=== PATIENT | female | born 1960 | race Caucasian/White ===

== ENCOUNTER 2016-07-11 17:52 | Emergency (ER) | payer SELFPAY ==
[2016-07-11 18:33] VITALS: O2SAT 98
--- NOTE | 2016-07-11 19:40 | ED.PDOC ---
History of Present Illness - General Chief Complaint: Problem Stated Complaint: hematuria Time Seen by Provider: 07/11/16 19:37 Source: patient Exam Limitations: no limitations - History of Present Illness Initial Comments: Ms. Eileen Ontiveros 55 y/o female with history of Dm2 ,HTN stated that for the last 2 weeks she had blood in her urine with frequency and dysuria .no fever,or chills but also with low back pain. Timing/Duration: getting worse, other - 14 days Quality: cramping Onset Location: suprapubic Radiation: none Activites at Onset: none Prior abdominal problems: none Sexual intercourse history: single partner Improving Factors: nothing Worsening Factors: nothing Associated Symptoms: other - back pain Allergies/Adverse Reactions: Allergies NO KNOWN ALLERGY Allergy (Verified 03/10/16 21:16) Home Medications: Ambulatory Orders Ciprofloxacin [Cipro] 500 mg PO BID #14 tab 03/10/16 Fluconazole [Diflucan Tab] 100 mg PO DAILY #5 tab 03/10/16 Ondansetron [Zofran Odt] 4 mg PO Q4H PRN #10 tab 03/10/16 Nitrofurantoin Monohydrate Mac [Macrobid] 100 mg PO BID #14 cap 07/11/16 Phenazopyridine HCl [Pyridium] 200 mg PO BID #20 tab 07/11/16 Review of Systems - Review of Systems Constitutional: States: no symptoms reported EENTM: States: no symptoms reported Respiratory: States: no symptoms reported Cardiology: States: no symptoms reported Gastrointestinal/Abdominal: States: other - irregular bowel movement Genitourinary: States: see HPI Musculoskeletal: States: no symptoms reported Skin: States: no symptoms reported Neurological: States: no symptoms reported Endocrine: States: no symptoms reported Hematologic/Lymphatic: States: no symptoms reported Past Medical History (General) - Patient Medical History Hx Stroke: No Hx Dementia: No Hx Asthma: Yes Hx of COPD: Yes Hx Cardiac Disorders: Yes Hx Congestive Heart Failure: No Hx Pacemaker: No Hx Hypertension: Yes Hx Thyroid Disease: No Hx Diabetes: Yes Hx Gastroesophageal Reflux: Yes Hx Renal Disease: No Hx Cancer: No Hx of HIV: No Hx Hepatitis C: No Hx MRSA: No MRSA Source:: Wound Surgical History: appendectomy, cholecystectomy, other - hysterectomy - Vaccination History Hx Tetanus, Diphtheria Vaccination: Yes Hx Influenza Vaccination: Yes - 12/2015 Hx Pneumococcal Vaccination: Yes - 07/2015 - Social History Hx Tobacco Use: Yes Hx Chewing Tobacco Use: No Hx Alcohol Use: Yes - occ Hx Substance Use: No Hx Substance Use Treatment: No Hx Depression: Yes Hx Physical Abuse: No Hx Emotional Abuse: No Hx Suspected Abuse: No - Activities of Daily Living Patient Lives Alone: No - Grooming Ability: Independent Eating (Feeding) Ability: Independent Toileting Ability: Independent - Female History Patient is a Female of Child Bearing Age (10 -59 yrs old): No - hysterectomy Patient : No Family Medical History - Family History Mother Living Status: Hx Family Hypertension: Yes - parents Hx Cardiac Disease: Yes Hx Family Diabetes: Yes - parents Hx Family Cancer: Yes - dad-prostate;sister-breast Daughter Family History: Unknown Living Status: Hx Family Diabetes: Yes Physical Exam - Physical Exam General Appearance: Alert, Comfortable, No apparent distress Eyes, Ears, Nose, Throat Exam: PERRL/EOMI, normal ENT inspection, TMs normal, pharynx normal Neck: non-tender, full range of motion, supple, normal inspection Cardiovascular/Respiratory: regular rate, rhythm, no M/R/G, normal peripheral pulses Gastrointestinal/Abdominal: normal bowel sounds, non tender, soft, no organomegaly, no pulsatile mass Back Exam: normal inspection, no CVA tenderness, no vertebral tenderness Extremity: normal range of motion, non-tender, normal inspection Neurologic: no motor/sensory deficits, alert, normal mood/affect, oriented x 3 Skin Exam: normal color, warm/dry, cyanosis Progress - Results/Orders Results/Orders: Laboratory Results Urine Color Yellow (Yellow) 07/11/16 16:00 Urine Appearance Cloudy (Clear) 07/11/16 16:00 Urine pH 6.0 (4.5-7.8) 07/11/16 16:00 Ur Specific [place] 1.010 (1.005-1.030) 07/11/16 16:00 Urine Protein 30 mg/dL 07/11/16 16:00 Urine Glucose (UA) 500 mg/dL (Negative) H 07/11/16 16:00 Urine Ketones Negative mg/dL (NEGATIVE) 07/11/16 16:00 Urine Blood Large (Negative) H 07/11/16 16:00 Urine Nitrite Negative 07/11/16 16:00 Urine Bilirubin Negative (NEGATIVE) 07/11/16 16:00 Urine Urobilinogen 0.2 mg/dL (0.2-1.0) 07/11/16 16:00 Ur Leukocyte Esterase Small (Negative) H 07/11/16 16:00 Urine RBC 5-10 /hpf H 07/11/16 16:00 Urine WBC Tntc /hpf H 07/11/16 16:00 Ur Epithelial Cells 3-5 /hpf 07/11/16 16:00 Urine Bacteria 1+ 07/11/16 16:00 Vital Signs - 8 hr 07/11/16 17:53 Temperature 99.2 F Pulse Rate [ 94 H Left Radial] Respiratory 20 Rate Blood Pressure 156/94 [Left Arm] O2 Sat by Pulse 98 Oximetry Departure - Departure Clinical Impression: UTI (urinary tract infection) Qualifiers: Urinary tract infection type: acute cystitis Hematuria presence: with hematuria Qualifier Code: (N30.01) Acute cystitis with hematuria Time of Disposition: 19:48 Disposition: Discharge to Home or Self Care Condition: Good Departure Forms: ED Discharge - Pt. Copy, Patient Portal Self Enrollment Instructions: DI for Urinary Tract Infection (UTI), Bladder Infection ( Alternative Therapy) Referrals: Venecia Stratton NP [Primary Care Provider] - 1-2 Weeks Prescriptions: Nitrofurantoin Monohydrate Mac [Macrobid] 100 mg PO BID #14 cap Phenazopyridine HCl [Pyridium] 200 mg PO BID #20 tab Home Medications: Ambulatory Orders Ciprofloxacin [Cipro] 500 mg PO BID #14 tab 03/10/16 Fluconazole [Diflucan Tab] 100 mg PO DAILY #5 tab 03/10/16 Ondansetron [Zofran Odt] 4 mg PO Q4H PRN #10 tab 03/10/16 Nitrofurantoin Monohydrate Mac [Macrobid] 100 mg PO BID #14 cap 07/11/16 Phenazopyridine HCl [Pyridium] 200 mg PO BID #20 tab 07/11/16 Additional Instructions: FOLLOW UP WITH PRIMARY MD patient to call for appointment
[2016-07-11] MEDS ORDERED: PHENAZOPYRIDINE HCL 200 MG TAB PO ONE (19:49)
[2016-07-11] MEDS ORDERED: NITROFURANTOIN MONO (ER DISP) 100 MG CAP PO ONE (19:57)
[2016-07-11] MEDS ORDERED: NITROFURANTOIN MONOHYDRATE MAC 100 MG CAP ONE (19:58)
[2016-07-11] MEDS ORDERED: NITROFURANTOIN MONOHYDRATE MAC 100 MG CAP PO ONE (20:02)
[2016-07-11 20:29] VITALS: BP 142/77; TEMP 97
== END 2016-07-11 20:25 | disposition home or self-care (01) ==
LOC: ER 17:52
DX: N30.01 Acute cystitis with hematuria (principal); J44.9 Chronic obstructive pulmonary disease, unspecified; I10 Essential (primary) hypertension; E11.9 Type 2 diabetes mellitus without complications; K21.9 Gastro-esophageal reflux disease without esophagitis; Z87.891 Personal history of nicotine dependence; Z79.899 Other long term (current) drug therapy

== ENCOUNTER 2017-12-06 20:17 | Emergency (ER) | payer SELFPAY ==
--- NOTE | 2017-12-06 20:41 | ED.PDOC ---
History of Present Illness - General Chief Complaint: [employer] Problem Stated Complaint: vaginal bleeding/cough Time Seen by Provider: 12/06/17 20:20 Source: patient Exam Limitations: no limitations - History of Present Illness Initial Comments: Eileen Ontiveros 56 y/o female stated that she had slight productive cough for the 4-5 days ;also with urinary frequency and blood in urine.DENIES VAGINAL BLEEDING stating coming from urinary bladder not vagina.Had blood in urine in the past recommended Urology referral but did not go. Timing/Duration: week, intermittent Quality: moderate, burning Onset Location: suprapubic Radiation: none Activites at Onset: none Prior abdominal problems: similar symptoms Sexual intercourse history: not active Improving Factors: nothing Worsening Factors: nothing Associated Symptoms: urinary frequency Allergies/Adverse Reactions: Allergies NO KNOWN ALLERGY Allergy (Verified 11/08/17 11:25) Home Medications: Ambulatory Orders Ciprofloxacin [Cipro] 500 mg PO BID #14 tab 03/10/16 Fluconazole [Diflucan Tab] 100 mg PO DAILY #5 tab 03/10/16 Ondansetron [Zofran Odt] 4 mg PO Q4H PRN #10 tab 03/10/16 Nitrofurantoin Monohydrate Mac [Macrobid] 100 mg PO BID #14 cap 07/11/16 Phenazopyridine HCl [Pyridium] 200 mg PO BID #20 tab 07/11/16 Acetamin W/Cod #3 Tab [Tylenol w/CODEINE #3] 1 ea PO Q6HR #3 tab 11/08/17 Cephalexin Monohydrate [Keflex] 500 mg PO Q8HRS 10 Days #40 cap 11/08/17 Benzonatate Perles [Tessalon Perles] 200 mg PO BID PRN #30 cap 12/06/17 Loratadine & Pseudoephedrine [Claritin-D 24 Hour 10-240 mg] 1 tab PO DAILY PRN # 10 tab 12/06/17 Sulfa/Trimeth 800/160 (Ds) Tab [Bactrim DS] 1 tablet PO BID #20 tab 12/06/17 Review of Systems - Review of Systems Constitutional: States: no symptoms reported EENTM: States: see HPI, nose congestion Respiratory: States: see HPI, cough Cardiology: States: no symptoms reported Gastrointestinal/Abdominal: States: no symptoms reported Genitourinary: States: see HPI, hematuria Musculoskeletal: States: no symptoms reported Skin: States: no symptoms reported Neurological: States: no symptoms reported Past Medical History (General) - Patient Medical History Hx Stroke: No Hx Dementia: No Hx Asthma: Yes Hx of COPD: Yes Hx Cardiac Disorders: Yes Hx Congestive Heart Failure: No Hx Pacemaker: No Hx Hypertension: Yes Hx Thyroid Disease: No Hx Diabetes: Yes Hx Gastroesophageal Reflux: Yes Hx Renal Disease: No Hx Cancer: No Hx of HIV: No Hx Hepatitis C: No Hx MRSA: No MRSA Source:: Wound Surgical History: other - hysterectomy - Vaccination History Hx Tetanus, Diphtheria Vaccination: No Hx Influenza Vaccination: No Hx Pneumococcal Vaccination: Yes - 07/2015 - Social History Hx Tobacco Use: Yes Hx Chewing Tobacco Use: No Hx Alcohol Use: Yes - rare Hx Substance Use: No Hx Substance Use Treatment: No Hx Depression: Yes Hx Physical Abuse: No Hx Emotional Abuse: No Hx Suspected Abuse: No - Female History Patient : No Family Medical History - Family History Mother Living Status: Hx Family Hypertension: Yes - parents Hx Cardiac Disease: Yes Hx Family Diabetes: Yes - parents Hx Family Cancer: Yes - dad-prostate;sister-breast Daughter Family History: Unknown Living Status: Hx Family Diabetes: Yes Physical Exam - Physical Exam General Appearance: Alert, Comfortable, No apparent distress Eyes, Ears, Nose, Throat Exam: other - nasal drainage Neck: supple, normal inspection Cardiovascular/Respiratory: regular rate, rhythm, no M/R/G, normal peripheral pulses, normal breath sounds Gastrointestinal/Abdominal: soft, no organomegaly Back Exam: no CVA tenderness, no vertebral tenderness Neurologic: alert, oriented x 3 Progress - Progress Progress: 12/06/17 23:42 Vital Signs - 8 hr 12/06/17 12/06/17 12/06/17 20:44 20:51 22:35 Temperature 98.9 F Pulse Rate 73 Pulse Rate [ 100 H Left] Respiratory 20 20 20 Rate Blood Pressure 157/86 [Left Arm] O2 Sat by Pulse 97 95 Oximetry - Results/Orders Results/Orders: 12/06/17 23:12 URINE CULTURE W/COLONY COUNT Stat 12/07/17 09:00 [facility] Daily Laboratory Results - last 24 hr 12/06/17 12/06/17 21:37 23:12 WBC 7.6 RBC 4.63 Hgb 14.0 Hct 41.6 MCV 89.9 MCH 30.3 MCHC 33.7 RDW 13.2 Plt Count 298 MPV 6.6 L Absolute Neuts (auto) 4.90 Absolute Lymphs (auto) 1.90 Absolute Monos (auto) 0.60 Absolute Eos (auto) 0.20 Absolute Basos (auto) 0.00 Neutrophils % 64.3 Lymphocytes % 24.6 Monocytes % 7.6 Eosinophils % 3.0 Basophils % 0.5 Urine Color Yellow Urine Appearance Sl cloudy Urine pH 6.5 Ur Specific [place] 1.020 Urine Protein 100 H Urine Glucose (UA) 500 H Urine Ketones Negative Urine Blood Large H Urine Nitrite Negative Urine Bilirubin Negative Urine Urobilinogen 0.2 Ur Leukocyte Esterase Trace H Urine RBC 40-50 H Urine WBC 20-30 H Ur Epithelial Cells 3-5 Urine Bacteria 1+ - EKG/XRAY/CT XRAY: chest - no acute infiltrates Departure - Departure Clinical Impression: Hematuria due to acute cystitis, Cough, Nasal congestion Time of Disposition: 23:43 Disposition: Discharge to Home or Self Care Condition: Fair Departure Forms: ED Discharge - Pt. Copy, Patient Portal Self Enrollment Instructions: Quitting Smoking for Older Adults, Smoking: Not Just Harmful to Your Lungs and Heart, Quitting Smoking, Drugs to Help You Stop Using Tobacco Referrals: Venecia Stratton NP [Primary Care Provider] - 1-2 Weeks Prescriptions: Benzonatate Perles [Tessalon Perles] 200 mg PO BID PRN #30 cap PRN Reason: Cough Loratadine & Pseudoephedrine [Claritin-D 24 Hour 10-240 mg] 1 tab PO DAILY PRN # 10 tab PRN Reason: Congestion Sulfa/Trimeth 800/160 (Ds) Tab [Bactrim DS] 1 tablet PO BID #20 tab Home Medications: Ambulatory Orders Ciprofloxacin [Cipro] 500 mg PO BID #14 tab 03/10/16 Fluconazole [Diflucan Tab] 100 mg PO DAILY #5 tab 03/10/16 Ondansetron [Zofran Odt] 4 mg PO Q4H PRN #10 tab 03/10/16 Nitrofurantoin Monohydrate Mac [Macrobid] 100 mg PO BID #14 cap 07/11/16 Phenazopyridine HCl [Pyridium] 200 mg PO BID #20 tab 07/11/16 Acetamin W/Cod #3 Tab [Tylenol w/CODEINE #3] 1 ea PO Q6HR #3 tab 11/08/17 Cephalexin Monohydrate [Keflex] 500 mg PO Q8HRS 10 Days #40 cap 11/08/17 Benzonatate Perles [Tessalon Perles] 200 mg PO BID PRN #30 cap 12/06/17 Loratadine & Pseudoephedrine [Claritin-D 24 Hour 10-240 mg] 1 tab PO DAILY PRN # 10 tab 12/06/17 Sulfa/Trimeth 800/160 (Ds) Tab [Bactrim DS] 1 tablet PO BID #20 tab 12/06/17 Additional Instructions: Follow up with your primary Md 08 December 2017 as needed;Return to ER as needed;May use nasal saline spray 4 sprays each nostril as needed for nasal congestion
--- NOTE | 2017-12-06 21:39 | RAD ---
PROCEDURE: XR CHEST 1 VIEW HISTORY: cough COMPARISON: 11/16/2017 TECHNIQUE: Single projection of the chest was done. FINDINGS: The lung bowman are well inflated . There are no discrete airspace infiltrates, pneumothoraces or pleural effusions. The pulmonary vascularity is normal. The cardiomediastinal silhouette is unremarkable for patient's age and sex. IMPRESSION: There is no acute pleural-parenchymal process seen in the imaged lung bowman. Location of Interpretation: [facility]eler[facility]iology Electronically signed by: Shade Hicks MD 12/06/2017 9:38 PM CDT Workstation: [id number]
[2017-12-06] MEDS ORDERED: IPRATROPIUM/ALBUTEROL 3 ML VIAL NEB ONE (22:18)
[2017-12-06] MEDS ORDERED: PSEUDOEPHEDRINE HCL 30 MG TAB PO ONE (23:44)
[2017-12-06] MEDS ORDERED: BENZONATATE PERLES 100 MG CAP PO ONE (23:44)
[2017-12-06] MEDS ORDERED: SULFA/TRIMETH TAB 800/160 (ER) 1 EA TAB PO ONE (23:44)
[2017-12-07] MEDS ORDERED: IPRATROPIUM/ALBUTEROL 3 ML VIAL NEB ONE (00:03)
[2017-12-07 00:19] VITALS: BP 153/87; TEMP 98.7; O2SAT 98
== END 2017-12-07 00:19 | disposition home or self-care (01) ==
LOC: ER 20:17
DX: N30.01 Acute cystitis with hematuria (principal); R05 Cough; R09.81 Nasal congestion; F32.9 Major depressive disorder, single episode, unspecified; J44.9 Chronic obstructive pulmonary disease, unspecified; I10 Essential (primary) hypertension; E11.9 Type 2 diabetes mellitus without complications; Z87.891 Personal history of nicotine dependence; Z79.899 Other long term (current) drug therapy
CPT/HCPCS: 36415; 71045; 81001; 85025; 87086; 94640; J7620

== ENCOUNTER 2017-12-15 19:36 | Emergency (ER) | payer SELFPAY ==
[2017-12-15 19:53] VITALS: TEMP 98.1; O2SAT 99
[2017-12-15] MEDS ORDERED: INSULIN LISPRO 100 UNITS/ML PEN SUBCU ONE (21:13)
--- NOTE | 2017-12-15 21:55 | CT ---
EXAM DESCRIPTION: Abdomen/Pelvis w/Contrast CLINICAL HISTORY:56 years Female, recurrent hematuria Comparison: None TECHNIQUE: Contiguous axial images of the abdomen and pelvis were obtained followed by reconstruction images. This exam was performed according to our departmental dose-optimization program, which includes automated exposure control, adjustment of the mA and/or kV according to patient size and/or use of iterative reconstruction technique. FINDINGS: Lung bases: Lung bases are clear. Heart: Visualized heart is within normal limits in size. Liver:Unremarkable. No focal liver lesion. Gallbladder:Cholecystectomy. Spleen:Unremarkable Pancreas: Pancreas is unremarkable. Adrenal glands:Within normal limits. Kidneys/ureters:Within normal limits Bladder:Mild bladder wall thickening. Pelvic organs: Hysterectomy. No pelvic mass lesion. Vascular structures: Scattered atherosclerotic calcifications. Peritoneum: Trace amount of pelvic fluid. Lymph nodes: No abnormal lymph nodes. Stomach/small bowel/colon: Stomach is unremarkable. Small bowel is unremarkable. Scattered colonic diverticula. No evicence of diverticulitis. Appendix: Appendix seen, within normal limits. Bones: No acute osseous abnormality. Soft tissues: Unremarkable.. IMPRESSION: Mild bladder wall thickening. Correlate for infectious cystitis. Nonspecific trace pelvic fluid. Electronically signed by: Andres Anderson MD 12/15/2017 9:54 PM CDT
[2017-12-15] MEDS ORDERED: FLUCONAZOLE 100 MG TAB PO ONE (22:07)
[2017-12-15] MEDS ORDERED: CIPROFLOXACIN 500 MG TAB PO ONE (22:07)
--- NOTE | 2017-12-15 22:10 | ED.PDOC ---
History of Present Illness - General Chief Complaint: Problem Stated Complaint: blood in urine, low back and low abd pain Time Seen by Provider: 12/15/17 20:17 Source: patient Exam Limitations: no limitations - History of Present Illness Initial Comments: The patient is a 56-year-old female presenting to emergency room secondary to intermittent hematuria. She reports this is been going on for the better part of the last month. She has had episodes of hematuria in the past and she has had urinary tract infections in the past. No fevers. She does report intermittent mild flank pain. She does have a history of smoking.she reports no vaginal bleeding just bleeding with urination. Timing/Duration: unsure Severity: moderate Improving Factors: nothing Worsening Factors: nothing Associated Symptoms: denies symptoms Allergies/Adverse Reactions: Allergies NO KNOWN ALLERGY Allergy (Verified 11/08/17 11:25) Home Medications: Ambulatory Orders Ciprofloxacin [Cipro] 500 mg PO BID #14 tab 03/10/16 Fluconazole [Diflucan Tab] 100 mg PO DAILY #5 tab 03/10/16 Ondansetron [Zofran Odt] 4 mg PO Q4H PRN #10 tab 03/10/16 Nitrofurantoin Monohydrate Mac [Macrobid] 100 mg PO BID #14 cap 07/11/16 Phenazopyridine HCl [Pyridium] 200 mg PO BID #20 tab 07/11/16 Acetamin W/Cod #3 Tab [Tylenol w/CODEINE #3] 1 ea PO Q6HR #3 tab 11/08/17 Cephalexin Monohydrate [Keflex] 500 mg PO Q8HRS 10 Days #40 cap 11/08/17 Benzonatate Perles [Tessalon Perles] 200 mg PO BID PRN #30 cap 12/06/17 Loratadine & Pseudoephedrine [Claritin-D 24 Hour 10-240 mg] 1 tab PO DAILY PRN # 10 tab 12/06/17 Sulfa/Trimeth 800/160 (Ds) Tab [Bactrim DS] 1 tablet PO BID #20 tab 12/06/17 Ciprofloxacin [Cipro] 500 mg PO BID #20 tab 12/15/17 Review of Systems - Review of Systems Constitutional: States: no symptoms reported EENTM: States: no symptoms reported Respiratory: States: no symptoms reported Cardiology: States: no symptoms reported Gastrointestinal/Abdominal: States: no symptoms reported Genitourinary: States: see HPI Musculoskeletal: States: no symptoms reported Skin: States: no symptoms reported Neurological: States: no symptoms reported Endocrine: States: no symptoms reported All other Systems: No Change from Baseline Past Medical History (General) - Patient Medical History Hx Stroke: No Hx Dementia: No Hx Asthma: Yes Hx of COPD: Yes Hx Cardiac Disorders: Yes Hx Congestive Heart Failure: No Hx Pacemaker: No Hx Hypertension: Yes Hx Thyroid Disease: No Hx Diabetes: Yes Hx Gastroesophageal Reflux: Yes Hx Renal Disease: No Hx Cancer: No Hx of HIV: No Hx Hepatitis C: No Hx MRSA: No MRSA Source:: Wound Surgical History: appendectomy, cholecystectomy, Hysterectomy, other - Vaccination History Hx Tetanus, Diphtheria Vaccination: No Hx Influenza Vaccination: No Hx Pneumococcal Vaccination: Yes - 07/2015 - Social History Hx Tobacco Use: Yes Hx Chewing Tobacco Use: No Hx Alcohol Use: Yes - rare Hx Substance Use: No Hx Substance Use Treatment: No Hx Depression: Yes Hx Physical Abuse: No Hx Emotional Abuse: No Hx Suspected Abuse: No - Female History Patient : No Family Medical History - Family History Mother Living Status: Hx Family Hypertension: Yes - parents Hx Cardiac Disease: Yes Hx Family Diabetes: Yes - parents Hx Family Cancer: Yes - dad-prostate;sister-breast Father Living Status: Cause of : CT Daughter Family History: Unknown Living Status: Hx Family Diabetes: Yes Physical Exam - Physical Exam General Appearance: Alert, Comfortable, No apparent distress Eye Exam: bilateral normal Ears, Nose, Throat: normal ENT inspection, normal pharynx Neck: full range of motion, supple Respiratory: lungs clear, normal breath sounds, no respiratory distress, no accessory muscle use Cardiovascular/Chest: normal peripheral pulses, regular rate, rhythm, no edema Peripheral Pulses: radial,right: 2+, radial,left: 2+ Gastrointestinal/Abdominal: non tender, soft Rectal Exam: deferred Back Exam: no CVA tenderness, no vertebral tenderness Extremity: non-tender, no pedal edema, no calf tenderness, other - 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 Neurologic: quality inspector II-XII nml as tested, alert, normal mood/affect, oriented x 3 Skin Exam: normal color Comments: Vital Signs - 24 hr 12/15/17 19:51 Temperature 98.1 F Pulse Rate [ 98 H Left Radial] Respiratory 20 Rate Blood Pressure 212/112 [Left Arm] O2 Sat by Pulse 99 Oximetry Progress - Progress Progress: 12/15/17 22:11 the patient is a 56-year-old female presenting with hematuria and a CT scan is consistent with cystitis. The patient will be placed on ciprofloxacin for 10 days as this has been a recurrent issue. She is also receiving one dose of Diflucan here. She does need follow-up with her primary care doctor to have a repeat urinalysis performed. A urine culture will be performed here today. She has had several episodes of hematuria in the past. CT scan here was reassuring otherwise. It may be worthwhile for her to see a urologist for a cystoscopy if the problem continues. She needs to keep herself well hydrated. She needs to achieve better blood sugar control. ER warnings were given. - Results/Orders Results/Orders: Laboratory Tests 12/15/17 12/15/17 12/15/17 19:53 20:36 20:36 WBC 7.7 RBC 4.64 Hgb 14.1 Hct 42.2 MCV 90.9 MCH 30.3 MCHC 33.4 RDW 13.6 Plt Count 347 MPV 6.5 L Absolute Neuts (auto) 5.00 Absolute Lymphs (auto) 2.00 Absolute Monos (auto) 0.50 Absolute Eos (auto) 0.20 Absolute Basos (auto) 0.00 Neutrophils % 65.3 Lymphocytes % 25.9 Monocytes % 6.1 Eosinophils % 2.2 Basophils % 0.5 PT 9.2 INR 0.92 PTT (SP) 21.8 Sodium Potassium Chloride Carbon Dioxide Anion Gap BUN Creatinine BUN/Creatinine Ratio Random Glucose Serum Osmolality Calcium Total Bilirubin AST ALT Alkaline Phosphatase Serum Total Protein Albumin Globulin Albumin/Globulin Ratio Urine Color Yellow Urine Appearance Clear Urine pH 6.0 Ur Specific [place] 1.020 Urine Protein 100 H Urine Glucose (UA) >=1000 H Urine Ketones Negative Urine Blood Large H Urine Nitrite Negative Urine Bilirubin Negative Urine Urobilinogen 0.2 Ur Leukocyte Esterase Trace H Urine RBC 30-40 H Urine WBC 5-10 H Ur Epithelial Cells 3-5 Urine Bacteria Rare 12/15/17 20:36 WBC RBC Hgb Hct MCV MCH MCHC RDW Plt Count MPV Absolute Neuts (auto) Absolute Lymphs (auto) Absolute Monos (auto) Absolute Eos (auto) Absolute Basos (auto) Neutrophils % Lymphocytes % Monocytes % Eosinophils % Basophils % PT INR PTT (SP) Sodium 135 Potassium 3.6 Chloride 100 L Carbon Dioxide 27 Anion Gap 11.6 L BUN 8 Creatinine 0.57 L BUN/Creatinine Ratio 14.0 Random Glucose 300 H Serum Osmolality 279.6 Calcium 9.3 Total Bilirubin 0.6 AST 16 ALT 17 Alkaline Phosphatase 127 H Serum Total Protein 7.3 Albumin 3.7 Globulin 3.6 H Albumin/Globulin Ratio 1.0 L Urine Color Urine Appearance Urine pH Ur Specific [place] Urine Protein Urine Glucose (UA) Urine Ketones Urine Blood Urine Nitrite Urine Bilirubin Urine Urobilinogen Ur Leukocyte Esterase Urine RBC Urine WBC Ur Epithelial Cells Urine Bacteria CT scan of abdomen and pelvis fails to show any definitive abnormality with the exception that she does have some bladder wall thickening that could be consistent with cystitis. Departure - Departure Clinical Impression: Cystitis Disposition: Discharge to Home or Self Care Condition: Fair Departure Forms: ED Discharge - Pt. Copy, Patient Portal Self Enrollment Instructions: DI for Urinary Tract Infection (UTI) Diet: diabetic diet Activity: increase activity as tolerated Referrals: Venecia Stratton NP [Primary Care Provider] - 1-2 Weeks Prescriptions: Ciprofloxacin [Cipro] 500 mg PO BID #20 tab Home Medications: Ambulatory Orders Ciprofloxacin [Cipro] 500 mg PO BID #14 tab 03/10/16 Fluconazole [Diflucan Tab] 100 mg PO DAILY #5 tab 03/10/16 Ondansetron [Zofran Odt] 4 mg PO Q4H PRN #10 tab 03/10/16 Nitrofurantoin Monohydrate Mac [Macrobid] 100 mg PO BID #14 cap 07/11/16 Phenazopyridine HCl [Pyridium] 200 mg PO BID #20 tab 07/11/16 Acetamin W/Cod #3 Tab [Tylenol w/CODEINE #3] 1 ea PO Q6HR #3 tab 11/08/17 Cephalexin Monohydrate [Keflex] 500 mg PO Q8HRS 10 Days #40 cap 11/08/17 Benzonatate Perles [Tessalon Perles] 200 mg PO BID PRN #30 cap 12/06/17 Loratadine & Pseudoephedrine [Claritin-D 24 Hour 10-240 mg] 1 tab PO DAILY PRN # 10 tab 12/06/17 Sulfa/Trimeth 800/160 (Ds) Tab [Bactrim DS] 1 tablet PO BID #20 tab 12/06/17 Ciprofloxacin [Cipro] 500 mg PO BID #20 tab 12/15/17 Additional Instructions: the patient is a 56-year-old female presenting with hematuria and a CT scan is consistent with cystitis. The patient will be placed on ciprofloxacin for 10 days as this has been a recurrent issue. She is also receiving one dose of Diflucan here. She does need follow-up with her primary care doctor to have a repeat urinalysis performed. A urine culture will be performed here today. She has had several episodes of hematuria in the past. CT scan here was reassuring otherwise. It may be worthwhile for her to see a urologist for a cystoscopy if the problem continues. She needs to keep herself well hydrated. She needs to achieve better blood sugar control. ER warnings were given.
[2017-12-15] MEDS ORDERED: ACETAMINOPHEN-CAFF-BUTALBITAL 1 EA TAB PO ONE (22:16)
[2017-12-15] MEDS ORDERED: PHENAZOPYRIDINE HCL 200 MG TAB PO ONE (22:16)
[2017-12-15 22:35] VITALS: BP 178/96
== END 2017-12-15 22:35 | disposition home or self-care (01) ==
LOC: ER 19:36
DX: N30.01 Acute cystitis with hematuria (principal); F32.9 Major depressive disorder, single episode, unspecified; I10 Essential (primary) hypertension; J44.9 Chronic obstructive pulmonary disease, unspecified; E11.9 Type 2 diabetes mellitus without complications; K21.9 Gastro-esophageal reflux disease without esophagitis; Z87.891 Personal history of nicotine dependence; Z90.49 Acquired absence of other specified parts of digestive tract; Z79.899 Other long term (current) drug therapy
CPT/HCPCS: 36415; 74177; 80053; 81001; 85025; 85610; 85730; J1815

== ENCOUNTER 2018-03-15 03:41 | Emergency (ER) | payer SELFPAY ==
[2018-03-15 04:03] VITALS: TEMP 97.9
[2018-03-15] MEDS ORDERED: SODIUM CHLORIDE 0.9% 1000ML 1,000 ML ONE (04:21)
[2018-03-15] MEDS ORDERED: SODIUM CHLORIDE 0.9% 1000ML 1,000 ML IVS ONE ×2 (04:22→06:37)
--- NOTE | 2018-03-15 04:45 | RAD ---
Chest single view on 03/15/2018 CLINICAL INDICATION: Chest pain COMPARISON: 02/03/2018 FINDINGS: The lungs are clear. Mild vascular calcification is noted in the aorta. Cardiac, hilar and mediastinal contours are within normal limits. Pulmonary vascularity is within normal limits. No bony abnormality is noted. IMPRESSION: No active disease. Electronically signed by: George Lafleur 03/15/2018 4:43 AM [facility]
--- NOTE | 2018-03-15 04:46 | RAD ---
Abdomen two view on 03/15/2018 CLINICAL INDICATION: Generalized abdominal pain COMPARISON: 03/10/2016 FINDINGS: There is no free air. Calcifications in the pelvis are consistent with phleboliths. Mild increased stool is noted in the rectum with otherwise no evidence of constipation. Bowel gas pattern is nonspecific. Degenerative changes are noted in the spine. IMPRESSION: Nonspecific abdomen. Electronically signed by: George Lafleur 03/15/2018 4:45 AM [facility]
[2018-03-15] MEDS ORDERED: INSULIN, REG.(HUMAN) 100 U/ML VIAL SUBCU ONE (05:00)
--- NOTE | 2018-03-15 05:59 | ED.PDOC ---
History of Present Illness - General Information Source: patient Exam Limitations: no limitations - History of Present Illness Initial Comments: c/o constipation x 5 days. No previous episodes. Abdominal Pain Onset Location: RLQ, LLQ, suprapubic Pain Radiation: no radiation Quality: severe, dull Timing/Duration: days - 5 days Improving Factors: nothing Worsening Factors: nothing Associated Symptoms: back pain, chest pain, headache, nausea/vomiting <EB SCHMIDT - Last Filed: 03/15/18 06:54> <Ag Guerrero - Last Filed: 03/15/18 09:35> - General Chief Complaint: GI Problem Stated Complaint: constipation Time Seen by Provider: 03/15/18 04:00 Review of Systems - Review of Systems Constitutional: States: see HPI EENTM: States: nose congestion, other - rhinorrhea Respiratory: States: see HPI, cough Cardiology: States: see HPI, chest pain - atypical CP; constant x 2-3 days; central; taking meth decreases the pain (most recent was today); worse with deep breathing or cough; dull in nature. Denies: edema Gastrointestinal/Abdominal: States: see HPI Genitourinary: States: dysuria - dysuria for months, frequency, hematuria Musculoskeletal: States: see HPI, back pain Skin: States: no symptoms reported Neurological: States: see HPI, headache Endocrine: States: increased thirst, increased urine Hematologic/Lymphatic: States: see HPI, other - hematuria <EB SCHMIDT - Last Filed: 03/15/18 06:54> Past Medical History (General) - Patient Medical History Hx Stroke: No Hx Dementia: No Hx Asthma: Yes Hx of COPD: Yes Hx Cardiac Disorders: Yes Hx Congestive Heart Failure: No Hx Pacemaker: No Hx Hypertension: Yes Hx Thyroid Disease: No Hx Diabetes: Yes Hx Gastroesophageal Reflux: Yes Hx Renal Disease: No Hx Cancer: No Hx of HIV: No Hx Hepatitis C: No Hx MRSA: No MRSA Source:: Wound Surgical History: appendectomy, cholecystectomy, Hysterectomy - Vaccination History Hx Tetanus, Diphtheria Vaccination: No Hx Influenza Vaccination: No Hx Pneumococcal Vaccination: No - Social History Hx Tobacco Use: Yes Hx Chewing Tobacco Use: No Hx Alcohol Use: Yes - rare Hx Substance Use: Yes Hx Substance Use Treatment: No Hx Depression: Yes Hx Physical Abuse: No Hx Emotional Abuse: No Hx Suspected Abuse: No - Female History Patient is a Female of Child Bearing Age (10 -59 yrs old): No Patient : No - Triage Comment ED Triage Comment: states no BM for 5 days, possible cysts in bladder and using meth for the pain <ROXANAEB - Last Filed: 03/15/18 06:54> Family Medical History - Family History Mother Living Status: Hx Family Hypertension: Yes - parents Hx Cardiac Disease: Yes Hx Family Diabetes: Yes - parents Hx Family Cancer: Yes - dad-prostate;sister-breast Father Living Status: Cause of : [place] Daughter Family History: Unknown Living Status: Hx Family Diabetes: Yes <CHAO SCHMIDTIN - Last Filed: 03/15/18 06:54> Physical Exam - Physical Exam General Appearance: Alert, Comfortable, No apparent distress, Other Eyes, Ears, Nose, Throat Exam: other - pink conjunctiva; anicteric; dry mucosa Neck: full range of motion, supple, normal inspection Respiratory: lungs clear, normal breath sounds, no respiratory distress Cardiovascular/Chest: regular rate, rhythm, no edema, no gallop, no JVD, no murmur, tachycardia Gastrointestinal/Abdominal: soft, no organomegaly, guarding, tenderness - diffuse tenderness Back Exam: normal inspection Extremity: normal range of motion, normal inspection, no pedal edema, no calf tenderness Neurologic: alert, normal mood/affect, oriented x 3 Skin Exam: normal color, warm/dry, other - decreased turgor Special Observations: C/O out of proportion <EB SCHMIDT - Last Filed: 03/15/18 06:54> Progress - Progress Progress: 03/15/18 05:56 Unchanged 03/15/18 06:[address] her abd considering her leukocytosis (she is s/p hyst, appy & axel) to evaluate her colon for diverticulitis. Regarding her CP it is atypical & her EKGs are stable. Normal chemical stress test 3 yrs ago. Heart cath 20 yrs ago - she doesn't know the results. I am more suspicious of myocarditis or pericarditis. NTG before opiates considering her reports of constipation. ESR. d-dimer. Repeat chem & cardiac enzyme group. Repeat fluid bolus. 03/15/18 06:54 No CP relief with NTG x 2. - Results/Orders Results/Orders: WBC 14 Glu 687 Tr nml CK mB 10 - EKG/XRAY/CT EKG: Sinus, Tachy Comments: ST @ 111; nml axis, intervals, T waves, ST segments; NE segments depressed XRAY: chest - CXR & abd WNL - Additional EKG/XRAY/Consults EKG #2: Sinus, no ST T wave changes Comments: NSR @ 100; nml axis, intervals, QRS, ST segments & T waves <EB SCHMIDT - Last Filed: 03/15/18 06:54> - Progress Progress: 03/15/18 09:27 the patient is a 57-year-old female presenting to the emergency room primarily due to constipation. The constipation does appear to be related to her uncontrolled diabetes as well as to the methamphetamine abuse. She does obviously need to control her diabetes and as she is not taking anything currently I'm going to place her on glyburide 5 mg daily. She does need to follow up with a primary care doctor within the next week for follow-up of this. She also does need to try and maintain a diabetic diet and keep herself well hydrated. She can take [id number] MiraLAX for the constipation and obviously avoid the methamphetamine. She has received several liters of IV fluids here and her blood sugars are back down to a more reasonable range by time of discharge. The abdominal pain is likely due to the uncontrolled diabetes as well as the constipation. Additionally the patient has what is most likely a 1 cm abscess to the left kidney. Urine is showing bacteria and yeast. The patient is going to be placed on ciprofloxacin and Keflex for the next 2 weeks for treatment of this. She does need to have a follow-up renal ultrasound in a couple of weeks to make sure that this is resolving. If it is not resolving and the urine is clear, then further workup of the area may be required. Urine culture is being done and that can be followed for further antibiotic adjustments. The patient is also going to be placed on Diflucan every other day for 7 doses as she does have yeast in the urine. ER warnings were given. - Results/Orders Results/Orders: Laboratory Tests 03/15/18 03/15/18 03/15/18 04:03 04:03 04:05 WBC 14.5 H RBC 4.51 Hgb 14.0 Hct 41.8 MCV 92.6 MCH 31.0 MCHC 33.5 RDW 13.0 Plt Count 404 H MPV 7.0 L Absolute Neuts (auto) 12.50 H Absolute Lymphs (auto) 0.90 L Absolute Monos (auto) 0.90 H Absolute Eos (auto) 0.00 Absolute Basos (auto) 0.10 Neutrophils % 86.3 H Lymphocytes % 6.5 L Monocytes % 5.9 Eosinophils % 0.3 L Basophils % 1.0 ESR D-Dimer, Quantitative Sodium 129 L Potassium 4.5 Chloride 93 L Carbon Dioxide 23 Anion Gap 17.5 BUN 16 Creatinine 0.81 BUN/Creatinine Ratio 19.8 POC Glucose Random Glucose 687 H* Serum Osmolality 292.3 Calcium 9.6 Total Bilirubin 0.9 AST 18 ALT 15 Alkaline Phosphatase 124 H Creatine Kinase 65 CK-MB (CK-2) 6.6 H* CK-MB (CK-2) % 10.15 H Troponin I < 0.02 Serum Total Protein 8.1 Albumin 3.5 Globulin 4.6 H Albumin/Globulin Ratio 0.8 L Urine Color Yellow Urine Appearance Cloudy Urine pH 5.5 Ur Specific [place] <= 1.005 Urine Protein 100 H Urine Glucose (UA) 500 H Urine Ketones Trace Urine Blood Large H Urine Nitrite Negative Urine Bilirubin Negative Urine Urobilinogen 0.2 Ur Leukocyte Esterase Small H Urine RBC 5-10 H Urine WBC 10-20 H Ur Epithelial Cells 1-3 Urine Bacteria 1+ Urine Yeast 3+ budding H 03/15/18 03/15/18 03/15/18 04:10 06:24 06:43 WBC RBC Hgb Hct MCV MCH MCHC RDW Plt Count MPV Absolute Neuts (auto) Absolute Lymphs (auto) Absolute Monos (auto) Absolute Eos (auto) Absolute Basos (auto) Neutrophils % Lymphocytes % Monocytes % Eosinophils % Basophils % ESR D-Dimer, Quantitative 0.53 H* Sodium 134 L Potassium 4.0 Chloride 100 L Carbon Dioxide 22 Anion Gap 16.0 BUN 16 Creatinine 0.82 BUN/Creatinine Ratio 19.5 POC Glucose > 400 H* Random Glucose 488 H* Serum Osmolality 291.1 Calcium 9.1 Total Bilirubin AST ALT Alkaline Phosphatase Creatine Kinase 55 CK-MB (CK-2) 6.2 H* CK-MB (CK-2) % Troponin I < 0.02 Serum Total Protein Albumin Globulin Albumin/Globulin Ratio Urine Color Urine Appearance Urine pH Ur Specific [place] Urine Protein Urine Glucose (UA) Urine Ketones Urine Blood Urine Nitrite Urine Bilirubin Urine Urobilinogen Ur Leukocyte Esterase Urine RBC Urine WBC Ur Epithelial Cells Urine Bacteria Urine Yeast 03/15/18 03/15/18 06:43 08:58 WBC RBC Hgb Hct MCV MCH MCHC RDW Plt Count MPV Absolute Neuts (auto) Absolute Lymphs (auto) Absolute Monos (auto) Absolute Eos (auto) Absolute Basos (auto) Neutrophils % Lymphocytes % Monocytes % Eosinophils % Basophils % ESR 100 H D-Dimer, Quantitative Sodium Potassium Chloride Carbon Dioxide Anion Gap BUN Creatinine BUN/Creatinine Ratio POC Glucose 305 H Random Glucose Serum Osmolality Calcium Total Bilirubin AST ALT Alkaline Phosphatase Creatine Kinase CK-MB (CK-2) CK-MB (CK-2) % Troponin I Serum Total Protein Albumin Globulin Albumin/Globulin Ratio Urine Color Urine Appearance Urine pH Ur Specific [place] Urine Protein Urine Glucose (UA) Urine Ketones Urine Blood Urine Nitrite Urine Bilirubin Urine Urobilinogen Ur Leukocyte Esterase Urine RBC Urine WBC Ur Epithelial Cells Urine Bacteria Urine Yeast EKGs show normal sinus rhythm to sinus tachycardia. Normal axis. Normal R-wave progression. No definitive ST segment or T-wave changes concerning for ischemia. Borderline QT interval. CT of abdomen and pelvis shows a area that is most likely a 1 cm abscess to the left kidney. See full report for details. <Ag Guerrero - Last Filed: 03/15/18 09:35> Departure <EB SCHMIDT - Last Filed: 03/15/18 06:54> - Departure Diet: diabetic diet Activity: increase activity as tolerated <Ag Guerrero - Last Filed: 03/15/18 09:35> - Departure Clinical Impression: Renal abscess, Methamphetamine abuse Uncontrolled diabetes mellitus Qualifiers: Diabetes mellitus type: type 2 Glycemic state: with hyperglycemia Qualified Code(s): E11.65 - Type 2 diabetes mellitus with hyperglycemia Constipation Qualifiers: Constipation type: drug induced constipation Qualified Code(s): K59.03 - Drug induced constipation Disposition: Discharge to Home or Self Care Condition: Fair Departure Forms: ED Discharge - Pt. Copy, Patient Portal Self Enrollment Instructions: Urinary Tract Infections in Adults, Diabetes Diet , Hyperglycemia, Adult (DC), Constipation in Adults, Drug Abuse and Drug Addiction (DC), Methamphetamine Referrals: Venecia Stratton NP [Primary Care Provider] - 1-2 Weeks Home Medications: Ambulatory Orders Unobtainable 12/19/18 Additional Instructions: the patient is a 57-year-old female presenting to the emergency room primarily due to constipation. The constipation does appear to be related to her uncontrolled diabetes as well as to the methamphetamine abuse. She does obviously need to control her diabetes and as she is not taking anything currently I'm going to place her on glyburide 5 mg daily. She does need to follow up with a primary care doctor within the next week for follow-up of this. She also does need to try and maintain a diabetic diet and keep herself well hydrated. She can take [id number] MiraLAX for the constipation and obviously avoid the methamphetamine. She has received several liters of IV fluids here and her blood sugars are back down to a more reasonable range by time of discharge. The abdominal pain is likely due to the uncontrolled diabetes as well as the constipation. Additionally the patient has what is most likely a 1 cm abscess to the left kidney. Urine is showing bacteria and yeast. The patient is going to be placed on ciprofloxacin and Keflex for the next 2 weeks for treatment of this. She does need to have a follow-up renal ultrasound in a couple of weeks to make sure that this is resolving. If it is not resolving and the urine is clear, then further workup of the area may be required. Urine culture is being done and that can be followed for further antibiotic adjustments. The patient is also going to be placed on Diflucan every other day for 7 doses as she does have yeast in the urine. ER warnings were given. prescriptions were written out and given to the patient.
[2018-03-15] MEDS: NITROGLYCERIN 0.4 MG 25 EA TAB SL ONE ×2 (06:35→06:42)
[2018-03-15] MEDS ORDERED: ASPIRIN TABLET 325 MG TAB PO ONE (06:56)
--- NOTE | 2018-03-15 07:16 | CT ---
EXAM: CT abdomen and pelvis with contrast. INDICATION: Abdominal pain, acute. TECHNIQUE: Contiguous axial CT images of the abdomen and pelvis. Intravenous contrast: Present. Oral contrast: Absent. DLP 882 mGy-cm. This exam was performed according to our departmental dose-optimization program, which includes automated exposure control, adjustment of the mA and/or kV according to patient size and/or use of iterative reconstruction technique. COMPARISON: 12/15/2017. FINDINGS: Lower chest: Partially imaged. Lung bases: Unremarkable. Cardiac apex: Unremarkable. Solid abdominal viscera: Liver: Unremarkable. Gallbladder: Cholecystectomy Pancreas: Unremarkable. Spleen: Unremarkable. Adrenal glands: Unremarkable. Right kidney: No hydronephrosis. Left kidney: No hydronephrosis. There is an ill-defined hypodense mass that measures approximately 1.6 x 1.1 cm along the anterior aspect of the lower pole, which was not present on the prior. There is adjacent perinephric stranding. Urinary bladder: Unremarkable. Abdominal aorta: Atherosclerotic calcifications without evidence of an aneurysm Peritoneal: Free fluid: None. Free air: None. Other: No pathologic sized lymph nodes in the upper abdomen. Bowel: Stomach: Unremarkable. Small bowel: Unremarkable. Appendix: Not uniquely identified, however there are no inflammatory changes within the right lower quadrant Colon: Unremarkable. Rectum: Unremarkable. Uterus: Hysterectomy Bones: Unremarkable. IMPRESSION: Development of a 1.6 x 1.1 cm hypodense mass along the anterior aspect of the lower pole of the left kidney with adjacent stranding and inflammation. This likely represents a phlegmon/abscess or hematoma. Renal cell carcinoma may have a similar appearance. Electronically signed by: Kin Jacques MD 03/15/2018 7:14 AM [facility] Workstation: [id number]
[2018-03-15] MEDS ORDERED: MAGNESIUM HYDROXIDE 30 ML UD PO ONE (07:45)
[2018-03-15] MEDS ORDERED: FLUCONAZOLE 150 MG TAB PO ONE (07:45)
[2018-03-15] MEDS ORDERED: ALUM & MAG HYDROX-SIMETHICONE 30 ML, LIDOCAINE VISCOUS 2% 15 ML PO ONE ×2 (07:45)
[2018-03-15] MEDS ORDERED: INSULIN, REG.(HUMAN) 100 U/ML VIAL IV ONE (07:45)
[2018-03-15] MEDS ORDERED: CIPROFLOXACIN 500 MG TAB PO ONE (07:47)
[2018-03-15] MEDS ORDERED: cefTRIAXone SODIUM 1 GM in SODIUM CHL 0.9% 50ML MIN-BAG+ 50 ML IVPB ONE (07:47)
[2018-03-15] MEDS ORDERED: LIDOCAINE HCL 2% (MOUTH-THROAT) 15 ML UD ONE (08:04)
[2018-03-15] MEDS ORDERED: cefTRIAXone SODIUM 1 GM VIAL ONE (08:04)
[2018-03-15] MEDS ORDERED: SODIUM CHL 0.9% 50ML MIN-BAG+ 50 ML IVPB ONE (08:05)
[2018-03-15 09:52] VITALS: BP 119/83; O2SAT 97
== END 2018-03-15 09:52 | disposition home or self-care (01) ==
LOC: ER 03:41
DX: E11.65 Type 2 diabetes mellitus with hyperglycemia (principal); N15.1 Renal and perinephric abscess; K59.03 Drug induced constipation; F15.10 Other stimulant abuse, uncomplicated; J44.9 Chronic obstructive pulmonary disease, unspecified; I51.9 Heart disease, unspecified; I10 Essential (primary) hypertension; K21.9 Gastro-esophageal reflux disease without esophagitis; F32.9 Major depressive disorder, single episode, unspecified; Z90.49 Acquired absence of other specified parts of digestive tract; Z87.891 Personal history of nicotine dependence
CPT/HCPCS: 36415; 36416; 71045; 74019; 74177; 80048; 80053; 81001; 82550; 82553; 82948; 84484; 85025; 85379; 85651; 87086; 93005; J0696; J7030; J7050

== ENCOUNTER 2018-06-22 16:47 | Inpatient (IN) | payer SELFPAY ==
[2018-06-22] MEDS ORDERED: METOCLOPRAMIDE HCL INJ 10 MG/2 ML VIAL IV ONE (16:54)
[2018-06-22] MEDS ORDERED: SODIUM CHLORIDE 0.9% 1000ML 1,000 ML IVS ONE ×2 (16:54→18:11)
[2018-06-22] MEDS ORDERED: ACETAMINOPHEN 325 MG TAB PO ONE (16:58)
--- NOTE | 2018-06-22 17:11 | ED.PDOC ---
History of Present Illness - General Chief Complaint: GI Problem Stated Complaint: intractable emesis Time Seen by Provider: 06/22/18 16:53 Information Source: patient, EMS Exam Limitations: no limitations - History of Present Illness Initial Comments: patient comes in with intractable nausea and vomiting since Tuesday. Patient states she started feeling a little bit ill with diarrhea, abdominal cramping and emesis. It has persisted over the past 5 days and she's been unable to keep anything down. No diarrheal stools today. She has had a mild increased temp with chronic cough from COPD but no sore throat or nasal congestion. She denies any dysuria or bright red blood per rectum. Patient states she does have a history of having some gastroparesis as well as uncontrolled diabetes mellitus. Patient is supposed to be on insulin but cannot afford her medication as been off of them for several weeks. Patient's blood sugar was checked by EMS to be greater than 300. Patient has no headache or altered LOC. Patient denies any chest pain or shortness of breath. Abdominal Pain Onset Location: generalized abdomen Pain Radiation: no radiation Quality: mild, cramping Timing/Duration: 1 week Improving Factors: nothing Worsening Factors: eating Associated Symptoms: fever/chills, nausea/vomiting Review of Systems - Review of Systems Constitutional: States: chills, fever, weakness EENTM: States: no symptoms reported. Denies: eye pain, ear discharge, nose congestion, throat pain Respiratory: States: cough. Denies: short of breath, wheezing Cardiology: States: no symptoms reported. Denies: chest pain, edema, palpitati ons, syncope Gastrointestinal/Abdominal: States: see HPI, abdominal pain, diarrhea, nausea, vomiting Genitourinary: States: no symptoms reported Musculoskeletal: States: no symptoms reported Skin: States: no symptoms reported Past Medical History (General) - Patient Medical History Hx Stroke: No Hx Dementia: No Hx Asthma: Yes Hx of COPD: Yes Hx Cardiac Disorders: Yes Hx Congestive Heart Failure: No Hx Pacemaker: No Hx Hypertension: Yes Hx Thyroid Disease: No Hx Diabetes: Yes Hx Gastroesophageal Reflux: Yes Hx Renal Disease: No Hx Cancer: No Hx of HIV: No Hx Hepatitis C: No Hx MRSA: No MRSA Source:: Wound - Vaccination History Hx Tetanus, Diphtheria Vaccination: No Hx Influenza Vaccination: No Hx Pneumococcal Vaccination: No - Social History Hx Tobacco Use: Yes Hx Chewing Tobacco Use: No Hx Alcohol Use: Yes - rare Hx Substance Use: Yes Hx Substance Use Treatment: No Hx Depression: Yes Hx Physical Abuse: No Hx Emotional Abuse: No Hx Suspected Abuse: No - Female History Patient : No Family Medical History - Family History Mother Living Status: Hx Family Hypertension: Yes - parents Hx Cardiac Disease: Yes Hx Family Diabetes: Yes - parents Hx Family Cancer: Yes - dad-prostate;sister-breast Father Living Status: Cause of : [place] Daughter Family History: Unknown Living Status: Hx Family Diabetes: Yes Physical Exam - Physical Exam General Appearance: Alert, Comfortable Eyes, Ears, Nose, Throat Exam: PERRL/EOMI, normal ENT inspection, TMs normal, pharynx normal, other - dry mucous membranes Neck: non-tender, full range of motion, supple, normal inspection Respiratory: chest non-tender, lungs clear, normal breath sounds, no respiratory distress Cardiovascular/Chest: normal peripheral pulses, regular rate, rhythm, no edema, no gallop, no murmur Peripheral Pulses: No deficit Gastrointestinal/Abdominal: normal bowel sounds, non tender, soft, no organ omegaly, no pulsatile mass Back Exam: no CVA tenderness Neurologic: alert, oriented x 3 Progress - Progress Progress: 06/22/18 19:07 called to transportation engineer practitioner Kari Fleming and will admit for UTI, dehydration, and uncontrolled DM with hyperglycemia - Results/Orders Results/Orders: 06/22/18 17:59 URINALYSIS Stat 06/22/18 18:11 Sodium Chloride 0.9% 1000ML [Ns 1000 ml] 1,000 ml IVS ONCE Laboratory Results WBC 5.1 K/mm3 (4.8-10.8) 06/22/18 17:03 RBC 4.14 M/mm3 (4.20-5.40) L 06/22/18 17:03 Hgb 12.4 gm/dL (12.0-16.0) 06/22/18 17:03 Hct 36.3 % (36.0-47.0) 06/22/18 17:03 MCV 87.6 fl (81.0-99.0) 06/22/18 17:03 MCH 30.0 pg (27.0-31.0) 06/22/18 17:03 MCHC 34.2 g/dL (33.0-37.0) 06/22/18 17:03 RDW 13.4 % (11.5-14.5) 06/22/18 17:03 Plt Count 216 K/mm3 (130-400) 06/22/18 17:03 MPV 6.7 fl (7.40-10.4) L 06/22/18 17:03 Absolute Neuts (auto) 4.50 K/uL (1.8-6.8) 06/22/18 17:03 Absolute Lymphs (auto) 0.40 K/uL (1.0-3.4) L 06/22/18 17:03 Absolute Monos (auto) 0.20 K/uL (0.2-0.8) 06/22/18 17:03 Absolute Eos (auto) 0.00 K/uL (0.0-0.4) 06/22/18 17:03 Absolute Basos (auto) 0.00 K/uL (0.0-0.1) 06/22/18 17:03 Neutrophils % 87.2 % (42.0-78.0) H 06/22/18 17:03 Lymphocytes % 7.1 % (20.0-50.0) L 06/22/18 17:03 Monocytes % 4.9 % (2.0-9.0) 06/22/18 17:03 Eosinophils % 0.2 % (1.0-5.0) L 06/22/18 17:03 Basophils % 0.6 % (0.0-2.0) 06/22/18 17:03 pCO2 27 mmHg (32-45) L 06/22/18 17:07 pO2 78 mmHg (83-108) L 06/22/18 17:07 HCO3 18.7 mmol/L 06/22/18 17:07 ABG pH 7.460 (7.35-7.45) H 06/22/18 17:07 ABG O2 Saturation 98.0 % (95.0-99.0) 06/22/18 17:07 ABG Base Excess -3.6 mmol/L 06/22/18 17:07 ABG Deoxyhemoglobin 2.0 % (0.0-5.0) 06/22/18 17:07 Oxyhemoglobin % 95.4 % (94.0-98.0) 06/22/18 17:07 Carboxyhemoglobin % 1.7 % (0.5-1.5) H 06/22/18 17:07 Methemoglobin % Sat 0.9 % (0.0-1.5) 06/22/18 17:07 Calc Total Hemoglobin 11.3 g/dL (12.0-16.0) L 06/22/18 17:07 Sodium 128 mmol/L (135-145) L 06/22/18 16:47 Potassium 4.0 mmol/L (3.6-5.0) 06/22/18 16:47 Chloride 94 mmol/L (101-111) L 06/22/18 16:47 Carbon Dioxide 20 mmol/L (21-31) L 06/22/18 16:47 Anion Gap 18.0 (12-18) 06/22/18 16:47 BUN 13 mg/dL (7-18) 06/22/18 16:47 Creatinine 0.81 mg/dL (0.6-1.3) 06/22/18 16:47 BUN/Creatinine Ratio 16.0 (10-20) 06/22/18 16:47 Random Glucose 336 mg/dL (70-105) H 06/22/18 16:47 Serum Osmolality 270.4 mOsm/L (275-295) L 06/22/18 16:47 Lactic Acid 2.2 mmol/L (0.5-2.2) 06/22/18 17:03 Calcium 8.4 mg/dL (8.4-10.2) 06/22/18 16:47 Total Bilirubin 0.7 mg/dL (0.2-1.0) 06/22/18 16:47 AST 44 IU/L (10-42) H 06/22/18 16:47 ALT 33 IU/L (10-60) 06/22/18 16:47 Alkaline Phosphatase 104 IU/L (42-121) 06/22/18 16:47 Creatine Kinase 29 IU/L (26-140) 06/22/18 17:03 CK-MB (CK-2) 1.6 ng/mL (0.0-4.4) 06/22/18 17:03 CK-MB (CK-2) % Not Reportable 06/22/18 17:03 Troponin I < 0.02 ng/mL (0.01-0.05) 06/22/18 17:03 Serum Total Protein 6.8 gm/dL (6.4-8.2) 06/22/18 16:47 Albumin 2.8 g/dl (3.2-5.5) L 06/22/18 16:47 Globulin 4.0 gm/dL (2.3-3.5) H 06/22/18 16:47 Albumin/Globulin Ratio 0.7 (1.1-1.9) L 06/22/18 16:47 Amylase 32 U/L (28-100) 06/22/18 16:47 Lipase 27 U/L (22-51) 06/22/18 16:47 Patient Name: CORNEL CARLTON Gender: Female Date of : 1960 Referring Physician: JUDI PACKER Organization: [facility] Accession Number: [id number] Requested Date: June 22, 2018 17:23 Report Status: Final Requested Procedure: 1 Procedure Description: Abdomen 1 View Modality: CR Findings Reporting MD: Gladys Blevins Fellow MD: Not available Dictation Time: Seam Stayer: Not available Branch Services Manager Date: EXAM: Abdomen 1 View CLINICAL INDICATION: 57-year-old female with pain. TECHNIQUE: Single supine view of the abdomen was obtained. COMPARISON: 03/15/2018. FINDINGS: Gas is seen within normal caliber small and large bowel. Few nonspecific distended loops of air-filled small bowel are noted. No free air is identified, however limited by supine technique. Multiple pelvic calcification may represent phleboliths. The osseous structures are within normal limits. RIGHT upper quadrant surgical clips. IMPRESSION: Nonspecific abdominal bowel gas pattern. Departure - Departure Clinical Impression: Dehydration UTI (urinary tract infection) Qualifiers: Urinary tract infection type: acute cystitis Hematuria presence: with hematuria Qualified Code(s): N30.01 - Acute cystitis with hematuria Disposition: Admit Patient Condition: Fair Departure Forms: ED Discharge - Pt. Copy, Patient Portal Self Enrollment Referrals: Venecia Stratton NP [Primary Care Provider] - 1-2 Weeks Home Medications: Ambulatory Orders NK 06/22/18 Decision To Admit - Decistion To Admit Decision to Admit Reason: Admit from ER Decision to Admit Date: 06/22/18 Decision to Admit Time: 19:07
[2018-06-22] MEDS ORDERED: INSULIN, REG.(HUMAN) 100 U/ML VIAL IV ONE (17:39)
--- NOTE | 2018-06-22 18:12 | RAD ---
EXAM: Abdomen 1 View CLINICAL INDICATION: 57-year-old female with pain. TECHNIQUE: Single supine view of the abdomen was obtained. COMPARISON: 03/15/2018. FINDINGS: Gas is seen within normal caliber small and large bowel. Few nonspecific distended loops of air-filled small bowel are noted. No free air is identified, however limited by supine technique. Multiple pelvic calcification may represent phleboliths. The osseous structures are within normal limits. RIGHT upper quadrant surgical clips. IMPRESSION: Nonspecific abdominal bowel gas pattern. Electronically signed by: Gladys Blevins MD 06/22/2018 6:08 PM CDT
[2018-06-22] MEDS ORDERED: cefTRIAXone SODIUM 1 GM in SODIUM CHL 0.9% 50ML MIN-BAG+ 50 ML IVPB ONE (18:30)
[2018-06-22] MEDS ORDERED: SODIUM CHL 0.9% 50ML MIN-BAG+ 50 ML IVPB ONE (18:40)
[2018-06-22] MEDS ORDERED: cefTRIAXone SODIUM 1 GM VIAL ONE (18:40)
[2018-06-22] MEDS ORDERED: KETOROLAC TROMETHAMINE INJ 30 MG/ML VIAL IV ONE (19:07)
--- NOTE | 2018-06-22 23:18 | HP ---
SUPERVISING PHYSICIAN: Abhishek Long MD CHIEF COMPLAINT: Nausea and vomiting with abdominal pain. HISTORY OF PRESENT ILLNESS: This is a 57-year-old female patient who came to the Emergency Room with intractable nausea and vomiting since Tuesday. She had some diarrhea on Tuesday, but has not had any in the last 3 or 4 days. She has had cramping and emesis that has persisted for 5 days. She is unable to keep any liquids down. She has an elevated temperature on admission of 102.6, heart rate 105, respiratory rate 22, blood pressure initially was 182/86. She had labored respirations. Her lab was done and WBCs were 5.1 with hemoglobin 12.4, hematocrit 36.3. She did have a left shift on her differential. Blood gas showed pCO2 27, pO2 78, bicarb 18.7, pH 7.46. O2 saturation 95%. Chemistries showed sodium 128, potassium 4, chloride 94, carbon dioxide 20, glucose 336, serum osmolality 270.4. Lactic acid 2.2, AST 44. Cardiac enzymes were negative. Her urinalysis showed 100 urine protein, 500 urine glucose, 80 urine ketones, moderate urine blood, 5 to 10 urine RBCs, too numerous to count urine WBCs, urine bacteria 2+. She was given some fluids in the Emergency Room. Flu swab was negative. She was also given some Rocephin. It is to be noted that the patient is severely diabetic as well as hypertensive. She has not been taking her medications due to financial issues for several months. She has just recently moved back to [place] from [place]. I was called for hospital admission. PAST MEDICAL HISTORY: 1. Hypertension. 2. Coronary artery disease. 3. Chronic obstructive pulmonary disease. 4. Diabetes mellitus. 5. Peripheral neuropathy. 6. Peripheral vascular disease with a stent to the right iliac. 7. Gastroesophageal reflux disease. 8. Chronic tobacco use. PAST SURGICAL HISTORY: 1. Hysterectomy. 2. Appendectomy. 3. Cholelithiasis. 4. D&C x2. 5. Multiple toe amputations. CURRENT MEDICATIONS: None. ALLERGIES: NO KNOWN DRUG ALLERGIES. FAMILY HISTORY: Positive for cancer, diabetes, stroke, heart attack. SOCIAL HISTORY: She smokes about one pack of cigarettes a day. She rarely drinks alcoholic beverages. She denies any illicit drug use. She recent moved back to [place] from [place]. She presently does not work. REVIEW OF SYSTEMS: GENERAL: Positive for fever and chills. Negative for weight changes. HEENT: Negative for sinus symptoms, ear pain, vision changes or sore throat. RESPIRATORY: Positive for shortness of breath. Negative for wheezing, coughing. CARDIAC: Negative for chest pain, palpitations or tachycardia. GASTROINTESTINAL: As per history of present illness. NEUROLOGIC: Negative for headache, dizziness or seizures. SKIN: Negative for lesions or rashes. PHYSICAL EXAMINATION: VITAL SIGNS: Temperature 98.4. Heart rate 96. Blood pressure 116/81. Respiratory rate 22. O2 saturation 97%. GENERAL: This is a 57-year-old female patient who looks older than her stated age. She looks to be moderately ill. HEENT: Normocephalic, atraumatic. Pupils are equal and reactive. Oropharynx is clear. She has poor dentition. NECK: Supple without mass. RESPIRATORY: Diminished breath sounds throughout. CHEST: There is equal rise and fall of the chest with inspiration and expiration. GASTROINTESTINAL: Abdomen is soft, nondistended, diffusely tender especially in the epigastric area. Bowel sounds are positive. EXTREMITIES: No cyanosis, clubbing or edema. NEUROLOGIC: Awake, alert and oriented times three. Cranial nerves II-XII are grossly intact. LABORATORY: Labs and films are as per history of present illness. IMPRESSION: 1. Urosepsis secondary to poorly controlled diabetes mellitus and severe dehydration with a temperature of 102.6, heart rate 105 and respiratory rate of 24 on admission. 2. Hyperglycemia with no ketoacidosis. 3. Hypoxia per ABG results, most likely secondary to her chronic obstructive pulmonary disease. 4. Electrolyte imbalance with sodium 128, chloride 94. 5. Elevated AST. 6. Chronic obstructive pulmonary disease without acute exacerbation in a chronic smoker. 7. Coronary artery disease. 8. Peripheral vascular disease. 9. Hypertension. 10. Poor medical compliance as she takes no medications. PLAN: We will admit the patient to the hospital. She will get fluids overnight and I have continued her Rocephin. I put her on a 2000 calorie ADA diet with accuchecks a.c. and h.s. with sliding scale insulin coverage. I will recheck her labs in the morning. I also put her on good pulmonary hygiene with scheduled and p.r.n. breathing treatments. I will check her chest x-ray in the morning. I have also ordered a [employer] consult to help with medication and to get a physician on discharge. She will also need some medication assistance. At some point, we are going to have to restart her medications, especially her diabetic medications. I have encouraged her to stop smoking. We will continue to monitor the patient closely and follow as needed. #[id number] [facility]BARA
[2018-06-22] MEDS ORDERED: GLUCAGON INJ 1 MG VIAL SUBCU PRN (23:27)
[2018-06-22] MEDS ORDERED: DEXTROSE 50% 25 GM/50 ML SYG IV PRN (23:27)
[2018-06-22] MEDS ORDERED: ALBUTEROL SULFATE 2.5 MG/3 ML VIAL NEB PRN (23:29)
[2018-06-22] MEDS ORDERED: ONDANSETRON INJ 4 MG/2 ML VIAL IV PRN (23:29)
[2018-06-23] MEDS: IV SET AND CAP CHANGE INJ INJ SCH (00:46)
[2018-06-23] MEDS: SODIUM CHLORIDE 0.9% 1000ML 1,000 ML IVS PRN ×3 (00:46→17:04)
[2018-06-23] MEDS: ACETAMINOPHEN 325 MG TAB PO PRN ×2 (04:01→11:57)
[2018-06-23] MEDS ORDERED: PANTOPRAZOLE SODIUM IV 40 MG VIAL IV SCH (06:30)
--- NOTE | 2018-06-23 07:36 | RAD ---
EXAM DESCRIPTION: Chest,2 Views: CR/DR CLINICAL HISTORY: 57 years Female copd COMPARISON: Single view chest x-ray 04/15/2017. TECHNIQUE: Two views. PA and Lateral. FINDINGS: Lungs: Normal lung volumes. Chronic bilateral perihilar peribronchial wall cuffing. No consolidation. Pleural spaces: No effusion or pneumothorax bilaterally. Heart: Normal size. Pulmonary Vascularity: Not increased. Mediastinum: Not widened. Aorta: Stable minimal atherosclerotic changes. Bony Thorax/Spine: No acute bony thoracic abnormalities. Minimal anterior wedging of a mid thoracic vertebral body possibly 6 or seventh. IMPRESSION: No significant air trapping. Chronic bilateral perihilar peribronchial wall cuffing. No acute infiltrate. Stable since the prior study. Electronically signed by: Kip Cordero MD 06/23/2018 7:33 AM CDT
[2018-06-23] MEDS: INSULIN LISPRO 100 UNITS/ML PEN SUBCU SCH ×6 (07:46→20:59)
[2018-06-23] MEDS ORDERED: SODIUM CHL 0.9% 50ML MIN-BAG+ 50 ML IVPB ONE (08:31)
[2018-06-23] MEDS ORDERED: cefTRIAXone SODIUM 1 GM VIAL ONE (08:31)
[2018-06-23] MEDS: cefTRIAXone SODIUM 1 GM in SODIUM CHL 0.9% 50ML MIN-BAG+ 50 ML IVPB SCH (08:51)
[2018-06-23] MEDS: SODIUM CHLORIDE 0.9% (FLUSH) 10 ML SYG IV SCH ×2 (09:03→21:00)
[2018-06-23] MEDS: ALBUTEROL SULFATE 2.5 MG/3 ML VIAL NEB SCH ×4 (09:30→21:36)
[2018-06-23] MEDS ORDERED: INSULIN DETEMIR 100 UNITS/ML PEN SUBCU ONE (12:01)
[2018-06-23] MEDS ORDERED: KETOROLAC TROMETHAMINE INJ 30 MG/ML VIAL IV ONE (13:33)
[2018-06-23] MEDS: HYDROcodone 5MG/APAP 325MG 1 EA TAB PO PRN ×2 (15:55→21:02)
[2018-06-23] MEDS ORDERED: PROMETHAZINE HCL INJ 12.5 MG in SODIUM CHLORIDE 0.9% 50ML 50 ML IVPB ONE (17:20)
[2018-06-23] MEDS ORDERED: PROMETHAZINE HCL INJ 25 MG/ML VIAL ONE (17:22)
[2018-06-23] MEDS ORDERED: SUMAtriptan SUCCINATE INJ 6 MG/0.5 ML VIAL SUBCU ONE (17:22)
[2018-06-23] MEDS ORDERED: SODIUM CHLORIDE 0.9% 50ML 50 ML ONE (17:23)
[2018-06-23] MEDS ORDERED: PANTOPRAZOLE SODIUM TAB 40 MG PO ONE (19:37)
[2018-06-23] MEDS: INSULIN DETEMIR 100 UNITS/ML PEN SUBCU SCH (20:59)
[2018-06-23] MEDS: ENOXAPARIN SODIUM 40 MG/0.4 ML SYG SUBCU SCH (21:00)
--- NOTE | 2018-06-23 22:41 | PN ---
DATE: 06/23/18 SUPERVISING PHYSICIAN: Frederic Guerrero M.D. SUBJECTIVE: The patient continues to have elevated blood sugars along with a headache. She notes that she has been off all of her medications for a length of time due to financial distress. She notes that she has headaches quite frequently. This is no different than ones she has had in the past. She has had no nausea or vomiting. OBJECTIVE: VITAL SIGNS: Temperature 98.6, pulse 97, blood pressure 120/73, respirations 20, satting 99% on nasal cannula at 2 liters at rest. I's and O's show a positive balance of 1700 with 2900 in, 1200 out. Weight is 75.6 kg. GENERAL: The patient is resting comfortably. Appears to be in no distress. CHEST: Lung sounds are clear throughout, just diminished towards the bases. HEART: Regular rate and rhythm. ABDOMEN: Obese but soft, non-tender. Positive bowel sounds. EXTREMITIES: Without any clubbing, cyanosis or edema. NEUROLOGIC: She is alert and oriented times three. LABORATORY: CBC shows neutropenia at 3,300. Hemoglobin 10.7, hematocrit 30.8, platelet count 174,000. Differential does show a left shift with 13% bands. Chemistries show improving hyponatremia which is at 130. BUN 0.53. Blood sugars remain elevated between 267 and 386. Liver functions all showing to be within normal limits. MICROBIOLOGY: Urine culture is pending. MRSA surveillance culture is pending. Blood culture is pending. RADIOLOGY: Chest x-ray per radiology interpretation showed no significant air trapping, chronic bilateral perihilar bronchial wall cuffing. No acute infiltrate. Stable since prior study. ASSESSMENT: 1. Sepsis secondary to urinary tract infection with the patient showing to be febrile on admission with 102.6 temperature, heart rate 105, respirations 24, and a neutropenic CBC with increased bands showing some improvement with initiation of antibiotic with cultures pending. 2. Hyperglycemia, persistent with a patient who is noncompliant with treatment of her diabetes. 3. Hypoxia likely secondary to chronic obstructive pulmonary disease with no significant signs of exacerbation. 4. Chronic obstructive pulmonary disease without acute exacerbation in a chronic smoker. 5. Persistent electrolyte imbalance with hyponatremia, although improving with fluids. 6. Elevated AST now back to baseline levels likely elevated from dehydration. 7. Migraine with a history of migraines. 8. Peripheral vascular disease. 9. Coronary artery disease. 10. Hypertension showing to be stable. 11. Poor medical compliance with medication regimen. PLAN: I will go ahead and give her a bolus of normal saline to see if this will help her fluids and maybe her headache. I have also given her some Toradol. Will go ahead and try some Imitrex as well if the Toradol does not work. Will get a little bit more aggressive with her management of her blood sugars. Will go ahead and continue sliding scale and add 8 units of Humalog a.c. as well as start her on long acting with Levemir 25 units b.i.d. She continues on good pulmonary hygiene and breathing treatments. We have gone through her medications and I think that once they have been updated will continue to monitor as needed. Will anticipate that she will probably be able to discharge at least by Tuesday, maybe Tuesday, depending on culture results. Will plan to repeat labs in the morning. Until she can transition to outpatient management will continue to monitor and treat as needed. #[id number] MTDD
[2018-06-24] MEDS: SODIUM CHLORIDE 0.9% 1000ML 1,000 ML IVS PRN ×2 (01:00→11:53)
[2018-06-24] MEDS: PANTOPRAZOLE SODIUM TAB 40 MG PO SCH (06:00)
[2018-06-24] MEDS ORDERED: POTASSIUM CHLORIDE 20 MEQ TAB PO ONE (06:55)
[2018-06-24] MEDS: INSULIN LISPRO 100 UNITS/ML PEN SUBCU SCH ×7 (07:48→21:02)
[2018-06-24] MEDS: ALBUTEROL SULFATE 2.5 MG/3 ML VIAL NEB SCH ×4 (08:36→19:50)
[2018-06-24] MEDS ORDERED: SODIUM CHL 0.9% 50ML MIN-BAG+ 50 ML IVPB ONE ×4 (09:30→19:22)
[2018-06-24] MEDS ORDERED: cefTRIAXone SODIUM 1 GM VIAL ONE (09:31)
[2018-06-24] MEDS: INSULIN DETEMIR 100 UNITS/ML PEN SUBCU SCH ×2 (09:51→21:01)
[2018-06-24] MEDS: cefTRIAXone SODIUM 1 GM in SODIUM CHL 0.9% 50ML MIN-BAG+ 50 ML IVPB SCH (10:02)
[2018-06-24] MEDS: ACETAMINOPHEN 325 MG TAB PO PRN (10:04)
[2018-06-24] MEDS: MEROPENEM 1 GM in SODIUM CHL 0.9% 50ML MIN-BAG+ 50 ML IVPB SCH ×2 (13:30→20:11)
[2018-06-24] MEDS ORDERED: MEROPENEM 1 GM VIAL IVPB ONE ×3 (13:59→19:22)
--- NOTE | 2018-06-24 14:20 | CT ---
EXAM DESCRIPTION: Head CLINICAL HISTORY: 57 years, Female, WAN with FUO TECHNIQUE: 2.5 mm slice thickness axial images through the brain were performed in bone and soft tissue windows in the absence of intravenous contrast. This exam was performed according to our departmental dose-optimization program which includes use of Automated Exposure Control, adjustment of the mA and/or kV according to patient size and/or use of iterative reconstruction technique. COMPARISON: None. FINDINGS: There is mild periventricular deep white matter hypoattenuation. Intact insular cortex. No dense MCA sign. Within the brain, there is no other area of abnormal attenuation. No mass effect, midline shift or sulcal effacement. The temporal horn of the RIGHT lateral ventricle is slightly prominent but the ventricles are otherwise normal in size. The cerebellar tonsils extend slightly caudally without alysia Chiari I malformation. The basal cisterns are patent. The visualized paranasal sinuses and mastoid air cells are patent. No fracture is present. IMPRESSION: No intracranial hemorrhage. The temporal horn of the RIGHT lateral ventricle is prominent but no other area of ventricular dilatation is seen. A normal variant is favored. However, if symptoms persist or if otherwise clinically indicated, consider MR imaging. Mild cerebellar tonsillar ectopia without alysia Chiari I malformation. Electronically signed by: Sonya Mello MD 06/24/2018 2:17 PM CDT
--- NOTE | 2018-06-24 14:33 | CT ---
EXAM DESCRIPTION: Chest w/Contrast (accession [id number]), Abdomen/Pelvis w/Contrast (accession [id number]) CLINICAL HISTORY: 57 years Female, DM with FUO COMPARISON: CT scan the abdomen and pelvis dated 03/15/2018 TECHNIQUE: 5 mm axial images through the chest, abdomen and pelvis were performed after the administration of intravenous contrast. Coronal and sagittal reconstructions were obtained. This exam was performed according to our departmental dose-optimization program which includes use of Automated Exposure Control, adjustment of the mA and/or kV according to patient size and/or use of iterative reconstruction technique. FINDINGS: Vascular calcifications are present with aortic and moderate to severe coronary artery involvement. Trace pericardial fluid is neurologic quantity. No significant pleural effusion. Unremarkable thyroid gland. The lungs are clear aside from dependent atelectasis. Patent central airway. There has been a previous cholecystectomy. New since the prior study is a small cystic structure in the lower pole LEFT kidney measuring 1.3 cm in diameter. Hounsfield units average 22. The previously visualized complex cystic structure in the interpolar region of the LEFT kidney has resolved. Postcontrast images of the spleen, RIGHT kidney, adrenal glands and atrophic pancreas are unremarkable. No ascites or small bowel obstruction. Nonvisualized appendix. No pericecal fat stranding. Stool fills the proximal colon. No bowel wall thickening or pericolonic fat stranding. Patent portal and splenic veins. Patent SMA and SMV. Redemonstrated is some asymmetric bladder wall thickening along the anterior, LEFT lateral and posterior aspects of the bladder. There has been a previous hysterectomy. No adnexal mass. No free fluid in the pelvis. No bladder calculus. Degenerative changes involve the pubic symphysis and are associated with chondrocalcinosis. There are also degenerative changes at the sacroiliac joints and in the spine. No fracture is identified. IMPRESSION: Bladder wall thickening is stable and likely chronic. However, recommend correlation with urinalysis given the patient's fever of unknown origin. No other finding within the chest, abdomen or pelvis to explain this patient's fever. Aortic atherosclerosis and coronary artery disease. New 1.3 cm lower pole slightly hyperattenuating LEFT renal cyst. Recommend a follow-up nonemergent renal ultrasound to better evaluate this lesion. Electronically signed by: Sonya Mello MD 06/24/2018 2:30 PM CDT
[2018-06-24] MEDS ORDERED: SUMAtriptan SUCCINATE INJ 6 MG/0.5 ML VIAL SUBCU ONE (16:23)
[2018-06-24] MEDS: HYDROcodone 5MG/APAP 325MG 1 EA TAB PO PRN (19:42)
--- NOTE | 2018-06-24 19:55 | PN ---
DATE: 06/24/18 SUPERVISING PHYSICIAN: Frederic Guerrero M.D. SUBJECTIVE: The patient this morning was running a temperature of 103. She notes that she feels horrible. She has had a headache on and off which is responding to medicine. She has no photophobia. She has had no nausea or vomiting. OBJECTIVE: VITAL SIGNS: Temperature 103.2, pulse 119, blood pressure 146/82, respirations 20, satting 96% on room air. GENERAL: the patient is alert. Does look ill but not in any acute distress. CHEST: Lung sounds are clear to auscultation, just slightly diminished towards the bases bilaterally. HEART: Regular rate and rhythm. ABDOMEN: Soft with some tenderness on palpation to the right side. No point tenderness. No rebound tenderness. EXTREMITIES: Without any clubbing, cyanosis or edema. NEUROLOGIC: Cranial nerves II-XII are grossly intact. There is no meningeal signs. No nuchal rigidity. She remain alert and oriented times three. No focal motor deficits. LABORATORY: White count 4,000, hemoglobin 9.8, hematocrit 28.9, platelet count 180,000. Differential continues to show elevated bands at 13% with a sed rate pending. Chemistry shows a low potassium at 2.9, BUN 7, creatinine 0.58. Blood sugars are now better controlled ranging between 147 and 168, calcium 7.7. C reactive protein is pending. MICROBIOLOGY: MRSA surveillance culture is pending. Blood culture is pending, showing no growth at 24 hours. Urine culture is pending. RADIOLOGY: CT of the head, chest, abdomen and pelvis are pending. ASSESSMENT: 1. Sepsis secondary to urinary tract infection with the patient showing to be febrile on admission with 102.6 temperature, heart rate 105, respirations 24, and a neutropenic CBC with increased bands showing some improvement with initiation of antibiotic with cultures pending. 2. Hyperglycemia, persistent with a patient who is noncompliant with treatment of her diabetes. 3. Hypoxia likely secondary to chronic obstructive pulmonary disease with no significant signs of exacerbation. 4. Chronic obstructive pulmonary disease without acute exacerbation in a chronic smoker. 5. Persistent electrolyte imbalance with hyponatremia, although improving with fluids. 6. Elevated AST now back to baseline levels likely elevated from dehydration. 7. Migraine with a history of migraines. 8. Peripheral vascular disease. 9. Coronary artery disease. 10. Hypertension showing to be stable. 11. Poor medical compliance with medication regimen. PLAN: Will continue with current plan of care at this point as she is doing well on long-acting insulin and additional a.c. coverage on the blood sugars. She is responding to pain management in regards to her headache. Will await results of the scans of her head, chest and abdomen to further rule out any other infectious source as well as CRP and ESR. Given that she is not responding in the last 24 hours to current antibiotic coverage, will be a little more aggressive awaiting final culture results and start her on some Meropenem. As soon as cultures are available so we can target antibiotic therapy as appropriate, again there may be some component of a temperature related to bacteremia but at this point her blood cultures remain negative. Until we can transition her to outpatient management will continue to monitor and treat as needed. #[id number] MTDD
[2018-06-24] MEDS: SODIUM CHLORIDE 0.9% (FLUSH) 10 ML SYG IV PRN (20:11)
[2018-06-24] MEDS: ENOXAPARIN SODIUM 40 MG/0.4 ML SYG SUBCU SCH (20:45)
[2018-06-25] MEDS: ACETAMINOPHEN 325 MG TAB PO PRN (04:10)
[2018-06-25] MEDS: MEROPENEM 1 GM in SODIUM CHL 0.9% 50ML MIN-BAG+ 50 ML IVPB SCH ×3 (04:34→20:57)
[2018-06-25] MEDS: PANTOPRAZOLE SODIUM TAB 40 MG PO SCH (06:06)
[2018-06-25] MEDS ORDERED: POTASSIUM CHLORIDE 20 MEQ TAB PO ONE ×2 (06:27→16:30)
[2018-06-25] MEDS: ALBUTEROL SULFATE 2.5 MG/3 ML VIAL NEB SCH ×4 (08:31→20:55)
[2018-06-25] MEDS: HYDROcodone 5MG/APAP 325MG 1 EA TAB PO PRN ×3 (09:06→22:55)
[2018-06-25] MEDS: INSULIN DETEMIR 100 UNITS/ML PEN SUBCU SCH ×2 (09:07→21:27)
[2018-06-25] MEDS: INSULIN LISPRO 100 UNITS/ML PEN SUBCU SCH ×6 (09:30→21:26)
[2018-06-25] MEDS ORDERED: SCOPOLAMINE PATCH 1.5MG 1 EA TD SCH (11:00)
[2018-06-25] MEDS ORDERED: SODIUM CHL 0.9% 50ML MIN-BAG+ 50 ML IVPB ONE ×3 (11:39→20:40)
[2018-06-25] MEDS ORDERED: MEROPENEM 1 GM VIAL IVPB ONE ×3 (11:40→20:41)
[2018-06-25] MEDS ORDERED: MAGNESIUM SULFATE PREMIX 2GM 2 GM in PREMIX BAG 1 BAG IVPB ONE (14:15)
[2018-06-25] MEDS ORDERED: SUMAtriptan SUCCINATE INJ 6 MG/0.5 ML VIAL SUBCU ONE (14:15)
[2018-06-25] MEDS ORDERED: MAGNESIUM SULFATE PREMIX 2GM 50 ML IVPB ONE (14:25)
--- NOTE | 2018-06-25 17:17 | PN ---
DATE: 06/25/18 SUPERVISING PHYSICIAN: Frederic Guerrero M.D. SUBJECTIVE: The patient notes that she is feeling a little bit better today. She still has a headache but it is responding to Imitrex p.r.n. She actually has an appetite and has eaten a good amount of each meal today. She did have a positive blood culture this morning with gram negative bacilli, but she has been on Meropenem for the last 48 hours. I did discuss with her that she will have to be here at least until we get final culture results to further target antibiotic therapy and have a plan of discharge. OBJECTIVE: VITAL SIGNS: She has run a low-grade fever, T max temperature of 100.0, pulse 89, blood pressure 134/78, respirations 16, satting 97% on room air. GENERAL: The patient is resting comfortably. Appears to be in no acute distress. She is alert. CHEST: Lungs are clear to auscultation. HEART: Regular rate and rhythm. ABDOMEN: Soft, non-tender. Positive bowel sounds. EXTREMITIES: Without any clubbing, cyanosis or edema. NEUROLOGIC: She is alert and oriented times three. LABORATORY: White count now is at 5,000. There are no bands present today but there is a resolving left shift. Platelet count is 185,000. Chemistries show a persistent hypokalemia with potassium 2.9, but her magnesium is low at 1.7. Blood sugars have been better controlled between 79 and 211. Liver functions are showing to be within normal limits. MICROBIOLOGY: Urine culture is reported out as greater than 100,000 colony forming units of normal urogenital salvador, however she did have 1 positive blood culture that was showing a gram positive bacilli awaiting further workup. MRSA surveillance culture remains negative. RADIOLOGY: Both chest CT, head, and abdomen and pelvis were without any acute findings. ASSESSMENT: 1. Sepsis secondary to a gram negative bacilli. Underlying source of infection being urinary tract infection with the patient showing to still be febrile and showing good clinical response now to Meropenem awaiting final culture results. 2. Hyperglycemia secondary to noncompliance with treatment showing now more stable blood sugars. 3. Hypoxia likely secondary to chronic obstructive pulmonary disease with no significant signs of exacerbation. 4. Chronic obstructive pulmonary disease without acute exacerbation in a chronic smoker. 5. Persistent electrolyte imbalance with hypokalemia and hypomagnesemia, uncertain etiology. Will replace both with oral potassium and IV magnesium, and repeat labs in the morning. 6. Elevated AST back to baseline levels, resolved. 7. Migraine with migraine headaches responding to Imitrex with no other signs of neurological deficits. 8. Peripheral vascular disease. 9. Coronary artery disease. 10. Hypertension showing to be stable. 11. Poor medical compliance with medication regimen. PLAN: Will continue with current plan with Meropenem and await culture results on the blood culture to further target antibiotic therapy. I discussed with her that she will probably be on a course of antibiotics at least for a total of 14 days but will not be able to transition to outpatient management until we have final culture results. Will continue to work with her blood sugars and home medications in anticipation of discharging home. Again the patient has been off all of her medications at home and will need refills within reason and financial ability to continue with outpatient management. Until she can transition to outpatient management will continue to monitor and treat as needed. #[id number] MTDD
[2018-06-25] MEDS: ENOXAPARIN SODIUM 40 MG/0.4 ML SYG SUBCU SCH (21:28)
[2018-06-25] MEDS: IV SET AND CAP CHANGE INJ INJ SCH (22:37)
[2018-06-26] MEDS ORDERED: SODIUM CHL 0.9% 50ML MIN-BAG+ 50 ML IVPB ONE ×4 (04:43→19:16)
[2018-06-26] MEDS ORDERED: MEROPENEM 1 GM VIAL IVPB ONE ×4 (04:44→19:16)
[2018-06-26] MEDS: MEROPENEM 1 GM in SODIUM CHL 0.9% 50ML MIN-BAG+ 50 ML IVPB SCH ×3 (04:48→20:08)
[2018-06-26] MEDS: PANTOPRAZOLE SODIUM TAB 40 MG PO SCH (06:02)
[2018-06-26] MEDS: INSULIN LISPRO 100 UNITS/ML PEN SUBCU SCH ×7 (07:32→20:55)
[2018-06-26] MEDS: POTASSIUM CHLORIDE 20 MEQ TAB PO SCH (07:40)
[2018-06-26] MEDS: ALBUTEROL SULFATE 2.5 MG/3 ML VIAL NEB SCH ×4 (08:15→19:58)
[2018-06-26] MEDS: INSULIN DETEMIR 100 UNITS/ML PEN SUBCU SCH ×2 (09:05→20:55)
[2018-06-26] MEDS ORDERED: INSULIN DETEMIR 100 UNITS/ML PEN SUBCU ONE (09:27)
[2018-06-26] MEDS: HYDROcodone 5MG/APAP 325MG 1 EA TAB PO PRN ×2 (15:11→23:18)
--- NOTE | 2018-06-26 17:35 | PN ---
DATE: 06/26/18 SUPERVISING PHYSICIAN: Misha Hall M.D. SUBJECTIVE: The patient feels okay today. She does not have any significant complaints. She has gram negative bacteremia and we are still awaiting the final identification of this. She has had some low blood sugars in the morning here and they gradually elevate throughout the day. OBJECTIVE: Blood pressure 153/60, heart rate 90, respiratory rate 18, temperature 99.3, oxygen saturation 98%. GENERAL: Ms. Ontiveros is a 57 year-old female who is in no significant distress at this time. NEUROLOGIC: The patient is alert and oriented. LUNGS: Clear to auscultation bilaterally. CARDIOVASCULAR: The patient has a regular rate and rhythm. Normal S1 and S2. ABDOMEN: Soft, positive bowel sounds. No tenderness to palpation. GENITOURINARY: Deferred. EXTREMITIES: Lower extremities with no significant edema, 2+ pulses. Capillary refill is less than 2 seconds. LABORATORY: Labs this morning, chemistry showed sodium 135, potassium 3.7, chloride 102, CO2 is 25, BUN less than 5, creatinine 0.40, glucose 69, calcium 8.2. ASSESSMENT: 1. Sepsis secondary to a gram negative bacteremia. 2. Urinary tract infection. 3. Labile blood sugars. 4. Chronic obstructive pulmonary disease. 5. Electrolyte imbalance which has improved. 6. Peripheral vascular disease. 7. Coronary artery disease. 8. Hypertension showing to be stable. 9. Poor medical compliance with medication regimen. PLAN: Given the lack of final identification of the bacteria, will continue the current antibiotics. Regarding her blood sugars, I am going to reduce the nighttime dose of Levemir to 15 units every h.s. It was 25 units. In addition to this I am going to increase the morning dose to 35 units from the 25 units. Will see if this improves the lability of her blood sugars. Repeat labs in the morning. Hopefully we will get a final identification of the bacteria soon. #[id number] [facility]
[2018-06-26] MEDS: SODIUM CHLORIDE 0.9% (FLUSH) 10 ML SYG IV PRN (20:08)
[2018-06-26] MEDS: ENOXAPARIN SODIUM 40 MG/0.4 ML SYG SUBCU SCH (20:40)
[2018-06-27] MEDS: MEROPENEM 1 GM in SODIUM CHL 0.9% 50ML MIN-BAG+ 50 ML IVPB SCH ×3 (04:01→20:10)
[2018-06-27] MEDS: PANTOPRAZOLE SODIUM TAB 40 MG PO SCH (06:08)
[2018-06-27] MEDS: INSULIN LISPRO 100 UNITS/ML PEN SUBCU SCH ×7 (07:13→20:50)
[2018-06-27] MEDS: POTASSIUM CHLORIDE 20 MEQ TAB PO SCH (07:35)
[2018-06-27] MEDS: ALBUTEROL SULFATE 2.5 MG/3 ML VIAL NEB SCH ×4 (07:52→20:19)
[2018-06-27] MEDS: INSULIN DETEMIR 100 UNITS/ML PEN SUBCU SCH ×2 (08:47→20:50)
[2018-06-27] MEDS ORDERED: MEROPENEM 1 GM VIAL IVPB ONE ×3 (12:12→19:15)
[2018-06-27] MEDS ORDERED: SODIUM CHL 0.9% 50ML MIN-BAG+ 50 ML IVPB ONE ×3 (12:12→19:14)
[2018-06-27] MEDS: HYDROcodone 5MG/APAP 325MG 1 EA TAB PO PRN (18:00)
--- NOTE | 2018-06-27 18:15 | PN ---
DATE: 06/27/18 SUPERVISING PHYSICIAN: Misah Hall M.D. SUBJECTIVE: The patient feels okay without any complaints at this time. Feels sleepy but other than that no pain or shortness of breath. OBJECTIVE: Blood pressure 134/79, heart rate 91, respiratory rate 24, temperature 97.8, oxygen saturation 100%. GENERAL: Ms. Ontiveros is a 57 year- old female in no active distress currently. NEUROLOGIC: The patient is alert and oriented. LUNGS: Clear to auscultation bilaterally. CARDIOVASCULAR: Regular rate and rhythm. Normal S1 and S2. ABDOMEN: Soft, positive bowel sounds. EXTREMITIES: Lower extremities have no edema. LABORATORY: White count 5.0, hemoglobin 10.4, hematocrit 30.6, platelet count 250. Chemistry shows low sodium at 133, potassium 4.1, chloride 100, CO2 is 24, BUN 7, creatinine 0.48, glucose 149, calcium 8.3. Blood culture came back with lactobacillus jensenii. ASSESSMENT: 1. Sepsis secondary to lactobacillus jensenii bacteremia. 2. Urinary tract infection. 3. Labile blood sugars which are improved. 4. Chronic obstructive pulmonary disease. 5. Electrolyte imbalance. 6. Peripheral vascular disease. 7. Coronary artery disease. 8. Hypertension. 9. Poor medical compliance. PLAN: Her blood sugars are better with the change in her insulin. I did speak with Dr. Black regarding this positive blood cultures. This is an abnormal finding. Her suggestion was we use Zosyn and after I told her she was Merrem, she said that was sufficient and she would need 2 weeks total of the Merrem. She also recommended an echocardiogram. So I will find out if the patient can have an echocardiogram while she is here in the hospital. #[id number] MTDD
[2018-06-27] MEDS: ACETAMINOPHEN 325 MG TAB PO PRN (19:51)
[2018-06-27] MEDS: SODIUM CHLORIDE 0.9% (FLUSH) 10 ML SYG IV PRN (20:10)
[2018-06-27] MEDS: ENOXAPARIN SODIUM 40 MG/0.4 ML SYG SUBCU SCH (20:36)
[2018-06-28] MEDS: MEROPENEM 1 GM in SODIUM CHL 0.9% 50ML MIN-BAG+ 50 ML IVPB SCH ×3 (04:10→20:00)
[2018-06-28] MEDS: PANTOPRAZOLE SODIUM TAB 40 MG PO SCH (06:03)
[2018-06-28] MEDS: ALBUTEROL SULFATE 2.5 MG/3 ML VIAL NEB SCH (07:46)
[2018-06-28] MEDS: INSULIN LISPRO 100 UNITS/ML PEN SUBCU SCH ×7 (08:20→21:18)
[2018-06-28] MEDS: SODIUM CHLORIDE 0.9% (FLUSH) 10 ML SYG IV PRN ×2 (08:43→19:59)
[2018-06-28] MEDS: POTASSIUM CHLORIDE 20 MEQ TAB PO SCH (08:57)
[2018-06-28] MEDS: INSULIN DETEMIR 100 UNITS/ML PEN SUBCU SCH ×2 (08:59→21:18)
[2018-06-28] MEDS ORDERED: SODIUM CHL 0.9% 50ML MIN-BAG+ 0 ML IVPB ONE (12:26)
[2018-06-28] MEDS ORDERED: MEROPENEM 1 GM VIAL IVPB ONE ×4 (12:27→19:21)
[2018-06-28] MEDS ORDERED: SODIUM CHL 0.9% 50ML MIN-BAG+ 50 ML IVPB ONE ×3 (16:40→19:21)
--- NOTE | 2018-06-28 21:08 | PN ---
DATE: 06/28/18 SUPERVISING PHYSICIAN: Misha Hall M.D. SUBJECTIVE: The patient reports that she still has a headache but it is only about once a day. She is feeling better. She is tolerating treatment. She has had no complaints. No additional fevers. OBJECTIVE: VITAL SIGNS: Temperature 98.8, pulse 74, blood pressure 125/75, respirations 18, satting 97% on room air. Weight 77.3 kg. CHEST: Lungs are clear to auscultation. HEART: Regular rate and rhythm. ABDOMEN: Soft, non- tender, positive bowel sounds. EXTREMITIES: Without any edema. NEUROLOGIC: She is alert and oriented times three. LABORATORY: No additional laboratory studies. Blood sugars have been stable between 102 and 210. ASSESSMENT: 1. Sepsis secondary to lactobacillus jensenii bacteremia. 2. Urinary tract infection. 3. Labile blood sugars which are improved. 4. Chronic obstructive pulmonary disease. 5. Electrolyte imbalance. 6. Peripheral vascular disease. 7. Coronary artery disease. 8. Hypertension. 9. Poor medical compliance. PLAN: Will continue with current plan of care at this point with Meropenem for a total of 2 weeks. She still needs an echocardiogram at some point. Giovana is working to see if she can be put on [facility], but she will remain as an inpatient until discharge. Until we can discharge her to outpatient management will continue to monitor and treat as needed. #[id number] MTDD
[2018-06-28] MEDS: ENOXAPARIN SODIUM 40 MG/0.4 ML SYG SUBCU SCH (21:18)
[2018-06-28] MEDS: IV SET AND CAP CHANGE INJ INJ SCH (22:39)
[2018-06-29] MEDS: MEROPENEM 1 GM in SODIUM CHL 0.9% 50ML MIN-BAG+ 50 ML IVPB SCH ×3 (04:06→20:31)
[2018-06-29] MEDS: PANTOPRAZOLE SODIUM TAB 40 MG PO SCH (06:04)
[2018-06-29] MEDS: INSULIN LISPRO 100 UNITS/ML PEN SUBCU SCH ×7 (08:03→21:00)
[2018-06-29] MEDS: SODIUM CHLORIDE 0.9% (FLUSH) 10 ML SYG IV PRN (08:05)
[2018-06-29] MEDS: POTASSIUM CHLORIDE 20 MEQ TAB PO SCH (08:18)
[2018-06-29] MEDS: INSULIN DETEMIR 100 UNITS/ML PEN SUBCU SCH ×2 (09:19→20:32)
[2018-06-29] MEDS ORDERED: SODIUM CHL 0.9% 50ML MIN-BAG+ 50 ML IVPB ONE ×3 (12:05→20:02)
[2018-06-29] MEDS ORDERED: MEROPENEM 1 GM VIAL IVPB ONE ×3 (12:06→20:03)
[2018-06-29] MEDS ORDERED: FLUCONAZOLE 150 MG TAB PO ONE (14:02)
[2018-06-29] MEDS: NYSTATIN SUSPENSION 5 ML UD MT SCH ×2 (16:51→20:31)
[2018-06-29] MEDS: ENOXAPARIN SODIUM 40 MG/0.4 ML SYG SUBCU SCH (20:32)
[2018-06-29] MEDS: MICONAZOLE NITRATE 2 % 45 GM TUBE VAG SCH (20:33)
--- NOTE | 2018-06-29 22:12 | PN ---
DATE: 06/29/18 SUPERVISING PHYSICIAN: Misha Hall M.D. SUBJECTIVE: The patient notes today that she has had some increase in burning and itching to the vaginal area. She thinks that she probably does have a yeast infection. I discussed that will start her on treatment for both oral yeast and as well as vaginal yeast infection as well as recheck a urinalysis to ensure that she is not developing a further urinary tract infection. She notes that her headaches are essentially gone. Her blood sugar has been well controlled. She is currently on day 6 of her 14 day course of Meropenem. I did discuss that she is going to stay in Acute Care until she completes it which should be , 07/06/18. She remains afebrile. OBJECTIVE: VITAL SIGNS: Temperature 99.6, pulse 86, blood pressure 121/79, respirations 16, satting 99% on room air. Weight 76.3 kg. CHEST: Clear to auscultation. HEART: Regular rate and rhythm. ABDOMEN: Soft, non-tender. Positive bowel sounds. EXTREMITIES: Without any edema. NEUROLOGIC: She is alert and oriented times three. LABORATORY: Chemistries this morning continue to show to be stable with BUN 11, creatinine 0.45. Blood sugars are fairly stable between 76 and 184, calcium 8.7. Repeat urinalysis was pending. MICROBIOLOGY: Blood cultures are negative at 5 days, except for the 1 bottle that grew Lactobacillus. No additional findings. ASSESSMENT: 1. Sepsis secondary to lactobacillus jensenii bacteremia. Patient responding well treatment on day 6 of a 14 day course to finish on 07/06/18 the Meropenem. 2. Urinary tract infection with normal salvador reported initially on first culture results with the patient having some dysuria more likely a yeast infection with urine cultures pending and patient started on Diflucan. 3. Diabetes mellitus type 2 with sugars showing to be stable. 4. Chronic obstructive pulmonary disease without any signs of exacerbation. 5. Electrolyte imbalance, resolved with fluids. 6. Peripheral vascular disease. 7. Coronary artery disease. 8. Hypertension. 9. Poor medical compliance. PLAN: Will continue with Meropenem for a total of 14 day course which today is day 6. He should finish the course on 07/06/18. I did talk with Giovana and per front office the patient will stay as an inpatient due to her wendy case. She still needs to have an echocardiogram at some point. I am not sure how we are going to get this accomplished. I started her on some Diflucan 1 dose 150 mg as well as Monistat and some Nystatin swish and swallow awaiting a urinalysis to further rule out any urinary tract infection versus complications of yeast infection secondary to hyperglycemia and senior living antibiotic therapy. Until she can finish her inpatient antibiotic infusion will continue to monitor and treat as needed. #[id number] MTDD
[2018-06-30] MEDS: MEROPENEM 1 GM in SODIUM CHL 0.9% 50ML MIN-BAG+ 50 ML IVPB SCH ×3 (04:16→19:54)
[2018-06-30] MEDS: PANTOPRAZOLE SODIUM TAB 40 MG PO SCH (06:04)
[2018-06-30] MEDS: INSULIN LISPRO 100 UNITS/ML PEN SUBCU SCH ×7 (07:29→21:07)
[2018-06-30] MEDS: POTASSIUM CHLORIDE 20 MEQ TAB PO SCH (07:32)
[2018-06-30] MEDS: INSULIN DETEMIR 100 UNITS/ML PEN SUBCU SCH ×2 (09:13→21:07)
[2018-06-30] MEDS: NYSTATIN SUSPENSION 5 ML UD MT SCH ×4 (09:13→21:09)
[2018-06-30] MEDS: SODIUM CHLORIDE 0.9% (FLUSH) 10 ML SYG IV PRN (10:02)
[2018-06-30] MEDS ORDERED: SODIUM CHL 0.9% 50ML MIN-BAG+ 50 ML IVPB ONE ×3 (11:42→22:45)
[2018-06-30] MEDS ORDERED: MEROPENEM 1 GM VIAL IVPB ONE ×3 (11:42→22:45)
--- NOTE | 2018-06-30 13:28 | PN ---
SUPERVISING PHYSICIAN: Misha Hall MD DATE: 06/30/18 SUBJECTIVE: The patient is sitting up in her chair in her room. She has no complaints of nausea, vomiting, diarrhea or constipation, chest pain or shortness of breath. She says she actually feels pretty well and is looking forward to going home. We discussed her continued IV antibiotic therapy and plan for discharge around 07/06/18 and she agrees. OBJECTIVE: VITAL SIGNS: Temperature 98.8. Heart rate 81. Blood pressure 128/80. Respiratory rate 16. O2 saturation 98% on room air. RESPIRATORY: Essentially clear to auscultation bilaterally. She is slightly diminished at the bases. CARDIAC: Regular rate and rhythm. GASTROINTESTINAL: Abdomen is soft, nondistended, nontender. Bowel sounds are positive. NEUROLOGIC: Awake, alert and oriented times three. LABORATORY: Blood glucose ranged from 130 to 184. All other labs and films have been reviewed via the EMR. ASSESSMENT: 1. Sepsis secondary to lactobacillus jensenii bacteremia. Patient responding well to treatment of a 14 day course of meropenem to finish on 07/06/18. 2. Urinary tract infection with normal salvador reported initially on first culture results with the patient having some dysuria more likely a yeast infection with urine cultures pending and patient started on Diflucan. 3. Diabetes mellitus, type 2, stable sugars. 4. Chronic obstructive pulmonary disease without any signs of exacerbation. 5. Electrolyte imbalance, resolved with fluids. 6. Peripheral vascular disease. 7. Coronary artery disease. 8. Hypertension. 9. Poor medical compliance. PLAN: We will continue present supportive care. She will continue her meropenem IV antibiotic infusion until approximately 07/06/18. I discontinued her associate buyer. She has no further complaints of her yeast infection, but we will continue to monitor that to see if we need to continue with her Diflucan. We will continue to monitor the patient closely and follow as needed. [facility][id number] [facility]
[2018-06-30] MEDS: ACETAMINOPHEN 325 MG TAB PO PRN (20:00)
[2018-06-30] MEDS: ENOXAPARIN SODIUM 40 MG/0.4 ML SYG SUBCU SCH (21:08)
[2018-06-30] MEDS: MICONAZOLE NITRATE 2 % 45 GM TUBE VAG SCH (21:09)
[2018-07-01] MEDS: MEROPENEM 1 GM in SODIUM CHL 0.9% 50ML MIN-BAG+ 50 ML IVPB SCH ×3 (04:03→20:04)
[2018-07-01] MEDS: PANTOPRAZOLE SODIUM TAB 40 MG PO SCH (06:19)
[2018-07-01] MEDS: INSULIN LISPRO 100 UNITS/ML PEN SUBCU SCH ×7 (07:27→21:08)
[2018-07-01] MEDS: POTASSIUM CHLORIDE 20 MEQ TAB PO SCH (07:29)
[2018-07-01] MEDS: SODIUM CHLORIDE 0.9% (FLUSH) 10 ML SYG IV SCH ×2 (08:55→21:10)
[2018-07-01] MEDS: NYSTATIN SUSPENSION 5 ML UD MT SCH ×4 (08:55→21:08)
[2018-07-01] MEDS: INSULIN DETEMIR 100 UNITS/ML PEN SUBCU SCH ×2 (08:56→21:09)
[2018-07-01] MEDS ORDERED: SODIUM CHL 0.9% 50ML MIN-BAG+ 50 ML IVPB ONE ×3 (11:13→22:21)
[2018-07-01] MEDS ORDERED: MEROPENEM 1 GM VIAL IVPB ONE ×3 (11:13→22:21)
--- NOTE | 2018-07-01 17:36 | PN ---
DATE: 07/01/18 SUPERVISING PHYSICIAN: Alexey Schwarz M.D. SUBJECTIVE: The patient is sitting up in her chair in her room. She has no complaints of nausea, vomiting, diarrhea, constipation, shortness of breath or chest pain. OBJECTIVE: VITAL SIGNS: Temperature 98.4, heart rate 80, blood pressure 137/82, respiratory rate 16, O2 sat 98% on room air. RESPIRATORY: Essentially clear to auscultation bilaterally. CARDIAC: Regular rate and rhythm. GASTROINTESTINAL: Abdomen is soft, nondistended, non-tender. Bowel sounds are positive. NEUROLOGIC: She is awake, alert and oriented times three. LABORATORY: Blood sugars have run between 146 and 181. ASSESSMENT: 1. Sepsis secondary to lactobacillus jensenii bacteremia. Patient responding well to treatment of a 14 day course of meropenem to finish on 07/06/18. 2. Urinary tract infection with normal salvador reported initially on first culture results with the patient having some dysuria more likely a yeast infection with urine cultures pending and patient started on Diflucan. 3. Diabetes mellitus, type 2, stable sugars. 4. Chronic obstructive pulmonary disease without any signs of exacerbation. 5. Electrolyte imbalance, resolved with fluids. 6. Peripheral vascular disease. 7. Coronary artery disease. 8. Hypertension. 9. Poor medical compliance. PLAN: We will continue present supportive care. She will continue her IV antibiotic therapy as previously ordered. Hopefully she can be discharged after she finishes her antibiotic treatment on 07/06/18. It might be helpful to order lab and a chest x-ray prior to discharge. Will continue to monitor closely and follow as needed. #[id number] [facility]
[2018-07-01] MEDS: ACETAMINOPHEN 325 MG TAB PO PRN (17:51)
[2018-07-01] MEDS ORDERED: HYDROcodone 5MG/APAP 325MG 1 EA TAB ONE (19:32)
[2018-07-01] MEDS ORDERED: HYDROcodone 5MG/APAP 325MG 1 EA TAB PO ONE (19:35)
[2018-07-01] MEDS: ENOXAPARIN SODIUM 40 MG/0.4 ML SYG SUBCU SCH (21:08)
[2018-07-01] MEDS: MICONAZOLE NITRATE 2 % 45 GM TUBE VAG SCH (21:10)
[2018-07-01] MEDS: IV SET AND CAP CHANGE INJ INJ SCH (22:55)
[2018-07-02] MEDS: MEROPENEM 1 GM in SODIUM CHL 0.9% 50ML MIN-BAG+ 50 ML IVPB SCH ×3 (04:14→20:19)
[2018-07-02] MEDS: PANTOPRAZOLE SODIUM TAB 40 MG PO SCH (06:17)
[2018-07-02] MEDS ORDERED: SODIUM CHL 0.9% 50ML MIN-BAG+ 50 ML IVPB ONE ×2 (07:16→19:19)
[2018-07-02] MEDS ORDERED: MEROPENEM 1 GM VIAL IVPB ONE ×2 (07:17→19:20)
[2018-07-02] MEDS: POTASSIUM CHLORIDE 20 MEQ TAB PO SCH (07:24)
[2018-07-02] MEDS: INSULIN LISPRO 100 UNITS/ML PEN SUBCU SCH ×7 (07:26→21:33)
[2018-07-02] MEDS: SODIUM CHLORIDE 0.9% (FLUSH) 10 ML SYG IV SCH ×2 (08:32→20:20)
[2018-07-02] MEDS: NYSTATIN SUSPENSION 5 ML UD MT SCH ×4 (08:32→20:19)
[2018-07-02] MEDS: INSULIN DETEMIR 100 UNITS/ML PEN SUBCU SCH ×2 (08:33→21:33)
[2018-07-02] MEDS: MICONAZOLE NITRATE 2 % 45 GM TUBE VAG SCH (20:19)
--- NOTE | 2018-07-02 22:05 | PN ---
DATE: 07/02/18 SUPERVISING PHYSICIAN: Alexey Schwarz M.D. SUBJECTIVE: The patient is sitting in her chair. Other than being bored she has no complaints. We discussed that she should be discharged around 07/06/18 after completion of her antibiotics. OBJECTIVE: VITAL SIGNS: Temperature 98.8, heart rate 85, blood pressure 125/81, respiratory rate 20, O2 sat 98% on room air. RESPIRATORY: Essentially clear to auscultation bilaterally, slightly diminished at the bases. CARDIAC: Regular rate and rhythm. NEUROLOGIC: She is awake, alert and oriented times three. LABORATORY: There are no labs or films to report at this time other than her blood sugars have run between 90 and 248. ASSESSMENT: 1. Sepsis secondary to lactobacillus jensenii bacteremia. Patient responding well to treatment of a 14 day course of meropenem to finish on 07/06/18. 2. Urinary tract infection with normal salvador reported initially on first culture results with the patient having some dysuria more likely a yeast infection with urine cultures pending and patient started on Diflucan. 3. Diabetes mellitus, type 2, stable sugars. 4. Chronic obstructive pulmonary disease without any signs of exacerbation. 5. Electrolyte imbalance, resolved with fluids. 6. Peripheral vascular disease. 7. Coronary artery disease. 8. Hypertension. 9. Poor medical compliance. PLAN: We will continue present supportive care. It may be beneficial to order some lab and x-ray prior to discharge, but I have held off on ordering any testing until later. But otherwise, will monitor closely and follow as needed. #[id number] [facility]
[2018-07-03] MEDS ORDERED: MEROPENEM 1 GM VIAL IVPB ONE ×3 (04:05→20:18)
[2018-07-03] MEDS ORDERED: SODIUM CHL 0.9% 50ML MIN-BAG+ 50 ML IVPB ONE ×3 (04:05→20:17)
[2018-07-03] MEDS: MEROPENEM 1 GM in SODIUM CHL 0.9% 50ML MIN-BAG+ 50 ML IVPB SCH ×3 (04:08→21:10)
[2018-07-03] MEDS: PANTOPRAZOLE SODIUM TAB 40 MG PO SCH (05:49)
[2018-07-03] MEDS: INSULIN LISPRO 100 UNITS/ML PEN SUBCU SCH ×7 (07:40→21:12)
[2018-07-03] MEDS: POTASSIUM CHLORIDE 20 MEQ TAB PO SCH (07:42)
[2018-07-03] MEDS: NYSTATIN SUSPENSION 5 ML UD MT SCH ×4 (08:50→21:12)
[2018-07-03] MEDS: INSULIN DETEMIR 100 UNITS/ML PEN SUBCU SCH ×2 (08:51→21:12)
[2018-07-03] MEDS: SODIUM CHLORIDE 0.9% (FLUSH) 10 ML SYG IV SCH ×2 (08:51→21:14)
--- NOTE | 2018-07-03 16:36 | PN ---
DATE: 07/04/18 SUPERVISING PHYSICIAN: NETTA LEHMAN MD SUBJECTIVE: The patient is doing well. She will be done with her antibiotic this coming on 07/06. She has had no complaints. OBJECTIVE: VITAL SIGNS: She remains afebrile. Temperature 98.6, pulse 84, blood pressure 120/81, respiratory rate 16, O2 sat 99% on room air. Weight 75.8 kg. GENERAL: The patient is resting comfortably, appears to be in no acute distress. CHEST: Lungs clear to auscultation. CARDIAC: Regular rate and rhythm. ABDOMEN: Soft, non-tender, positive bowel sounds. EXTREMITIES: Without any cyanosis, clubbing, or edema. NEUROLOGIC: She is alert and oriented times three. LABORATORY: Blood sugars remain well-controlled, between 136 and 248. ASSESSMENT: 1. Sepsis secondary to lactobacillus jensenii bacteremia. Patient responding well to treatment of a 14 day course of meropenem to finish on 07/06/18. 2. Urinary tract infection with normal salvador reported initially on first culture results with the patient having some dysuria more likely a yeast infection with urine cultures pending and patient started on Diflucan. 3. Diabetes mellitus, type 2, stable sugars. 4. Chronic obstructive pulmonary disease without any signs of exacerbation. 5. Electrolyte imbalance, resolved with fluids. 6. Peripheral vascular disease. 7. Coronary artery disease. 8. Hypertension. 9. Poor medical compliance. PLAN: I will continue with antibiotic therapy until she completes a course on 07/06/18. We will continue to follow the patient and monitor her blood sugars. She has been stable at this point and we will hold off on additional laboratory studies. Until she can transition to outpatient management, we will continue to monitor and treat as needed. #[id number] MTDD
[2018-07-03] MEDS: MICONAZOLE NITRATE 2 % 45 GM TUBE VAG SCH (21:11)
[2018-07-04] MEDS ORDERED: MEROPENEM 1 GM VIAL IVPB ONE ×4 (04:34→19:06)
[2018-07-04] MEDS ORDERED: SODIUM CHL 0.9% 50ML MIN-BAG+ 50 ML IVPB ONE ×4 (04:34→19:06)
[2018-07-04] MEDS: MEROPENEM 1 GM in SODIUM CHL 0.9% 50ML MIN-BAG+ 50 ML IVPB SCH ×3 (04:39→20:09)
[2018-07-04] MEDS: PANTOPRAZOLE SODIUM TAB 40 MG PO SCH (06:06)
[2018-07-04] MEDS: POTASSIUM CHLORIDE 20 MEQ TAB PO SCH (07:20)
[2018-07-04] MEDS: INSULIN LISPRO 100 UNITS/ML PEN SUBCU SCH ×7 (07:21→20:52)
[2018-07-04] MEDS: INSULIN DETEMIR 100 UNITS/ML PEN SUBCU SCH ×2 (08:32→20:53)
[2018-07-04] MEDS: NYSTATIN SUSPENSION 5 ML UD MT SCH ×4 (08:32→20:52)
[2018-07-04] MEDS: SODIUM CHLORIDE 0.9% (FLUSH) 10 ML SYG IV SCH ×2 (08:33→20:53)
[2018-07-04] MEDS: MICONAZOLE NITRATE 2 % 45 GM TUBE VAG SCH (20:53)
--- NOTE | 2018-07-04 22:29 | PN ---
DATE: 07/04/18 SUPERVISING PHYSICIAN: Frederic Guerrero M.D. SUBJECTIVE: The patient is doing well. She is actually been outside, although we have caught her smoking once and reminded her that this is not an option. She has only got 3 more days until she should complete her antibiotic regimen. She has had no diarrhea, nausea or vomiting. She has not had any headaches. OBJECTIVE: VITAL SIGNS: Temperature 98.6, pulse 86, blood pressure 122/77, respirations 90% on room air. Weight is 75.0 kg. CHEST: Lungs are clear to auscultation . HEART: Regular rate and rhythm. ABDOMEN: Soft, non-tender. Positive bowel sounds. EXTREMITIES: Without any clubbing, cyanosis or edema. NEUROLOGIC: She is alert and oriented times three. LABORATORY: Blood sugars remain well controlled between 130 and 208. ASSESSMENT: 1. Sepsis secondary to lactobacillus jensenii bacteremia. Patient responding well to treatment of a 14 day course of meropenem to finish on 07/06/18. 2. Urinary tract infection with normal salvador reported initially on first culture results with the patient having some dysuria more likely a yeast infection with urine cultures pending and patient started on Diflucan. 3. Diabetes mellitus, type 2, stable sugars. 4. Chronic obstructive pulmonary disease without any signs of exacerbation. 5. Electrolyte imbalance, resolved with fluids. 6. Peripheral vascular disease. 7. Coronary artery disease. 8. Hypertension. 9. Poor medical compliance. PLAN: Will continue to follow the patient as she completes her final days of therapy with Meropenem for the underlying bacteremia. She will complete a course of Meropenem 14 days on 07/06/18. Will continue to monitor blood sugars and labs as needed. Until she can transition to outpatient management will continue to monitor and treat as needed. [facility][id number] [facility]
[2018-07-05] MEDS: IV SET AND CAP CHANGE INJ INJ SCH (01:37)
[2018-07-05] MEDS: MEROPENEM 1 GM in SODIUM CHL 0.9% 50ML MIN-BAG+ 50 ML IVPB SCH ×3 (04:29→20:10)
[2018-07-05] MEDS: PANTOPRAZOLE SODIUM TAB 40 MG PO SCH (06:26)
[2018-07-05] MEDS: INSULIN LISPRO 100 UNITS/ML PEN SUBCU SCH ×7 (08:16→21:12)
[2018-07-05] MEDS: SODIUM CHLORIDE 0.9% (FLUSH) 10 ML SYG IV SCH ×2 (08:19→21:14)
[2018-07-05] MEDS: POTASSIUM CHLORIDE 20 MEQ TAB PO SCH (08:20)
[2018-07-05] MEDS: INSULIN DETEMIR 100 UNITS/ML PEN SUBCU SCH ×2 (08:20→21:14)
[2018-07-05] MEDS: NYSTATIN SUSPENSION 5 ML UD MT SCH ×4 (08:21→21:13)
[2018-07-05] MEDS ORDERED: SODIUM CHL 0.9% 50ML MIN-BAG+ 50 ML IVPB ONE ×3 (12:04→19:10)
[2018-07-05] MEDS ORDERED: MEROPENEM 1 GM VIAL IVPB ONE ×3 (12:04→19:11)
--- NOTE | 2018-07-05 21:04 | PN ---
DATE: 07/05/18 SUPERVISING PHYSICIAN: Frederic Guerrero M.D. SUBJECTIVE: The patient continues to do well. She has had no complaints. She remains afebrile. OBJECTIVE: VITAL SIGNS: Show to be stable. Temperature 97.4, pulse 85, blood pressure 115/75, respirations 12 to 18, satting 99% on room air. CHEST: Lungs are clear to auscultation. HEART: Regular rate and rhythm. ABDOMEN: Soft, non- tender. Positive bowel sounds. EXTREMITIES: Without any edema. NEUROLOGIC: She is alert and oriented times three. LABORATORY: Blood sugars range between 130 to 142. ASSESSMENT: 1. Sepsis secondary to lactobacillus jensenii bacteremia. Patient responding well to treatment of a 14 day course of meropenem to finish on 07/06/18. 2. Urinary tract infection with normal salvador reported initially on first culture results with the patient having some dysuria more likely a yeast infection with urine cultures pending and patient started on Diflucan. 3. Diabetes mellitus, type 2, stable sugars. 4. Chronic obstructive pulmonary disease without any signs of exacerbation. 5. Electrolyte imbalance, resolved with fluids. 6. Peripheral vascular disease. 7. Coronary artery disease. 8. Hypertension. 9. Poor medical compliance. PLAN: Tomorrow she will complete her 14 days of Meropenem after which we can discharge her to continue with outpatient setting. Until then will continue to monitor her blood sugars as needed. Again, hopefully be able to discharge tomorrow to continue with outpatient management. #[id number] MTDD
[2018-07-05] MEDS: MICONAZOLE NITRATE 2 % 45 GM TUBE VAG SCH (21:13)
[2018-07-06] MEDS: MEROPENEM 1 GM in SODIUM CHL 0.9% 50ML MIN-BAG+ 50 ML IVPB SCH ×2 (03:50→11:38)
[2018-07-06 06:33] VITALS: TEMP 98.2
[2018-07-06] MEDS: PANTOPRAZOLE SODIUM TAB 40 MG PO SCH (06:47)
[2018-07-06] MEDS: INSULIN LISPRO 100 UNITS/ML PEN SUBCU SCH ×4 (07:39→11:47)
[2018-07-06] MEDS: POTASSIUM CHLORIDE 20 MEQ TAB PO SCH (07:40)
[2018-07-06] MEDS: NYSTATIN SUSPENSION 5 ML UD MT SCH (08:58)
[2018-07-06] MEDS: INSULIN DETEMIR 100 UNITS/ML PEN SUBCU SCH (08:59)
[2018-07-06] MEDS: SODIUM CHLORIDE 0.9% (FLUSH) 10 ML SYG IV SCH (09:00)
[2018-07-06 10:15] VITALS: BP 128/76; O2SAT 99
[2018-07-06] MEDS ORDERED: MEROPENEM 1 GM VIAL IVPB ONE (11:28)
[2018-07-06] MEDS ORDERED: SODIUM CHL 0.9% 50ML MIN-BAG+ 50 ML IVPB ONE (11:28)
--- NOTE | 2018-07-06 17:31 | DS ---
SUPERVISING PHYSICIAN: Frederic Guerrero M.D. DISCHARGE DIAGNOSIS: 1. Sepsis secondary to lactobacillus jensenii bacteremia. Patient responding well to treatment of a 14 day course of meropenem to finish on 07/06/18. 2. Urinary tract infection with normal salvador reported initially on first culture results with the patient having some dysuria more likely a yeast infection with urine cultures pending and patient started on Diflucan. 3. Diabetes mellitus, type 2, stable sugars. 4. Chronic obstructive pulmonary disease without any signs of exacerbation. 5. Electrolyte imbalance, resolved with fluids. 6. Peripheral vascular disease. 7. Coronary artery disease. 8. Hypertension. 9. Poor medical compliance. HISTORY OF PRESENT ILLNESS: This is a 57-year-old female patient who presented to the Emergency Room on date of admission with intractable nausea and vomiting since the Tuesday previous. She had diarrhea on that day, but did not have any diarrhea for 3 or 4 days prior to admission. She had cramps and emesis that persisted for about 5 days. She was unable to keep any liquids down. She has an elevated temperature on admission of 102.6, heart rate 105, respiratory rate 22. Blood pressure initially was 182/86 with labored respirations. Lab was done and WBCs were 5.1 with hemoglobin 12.4, hematocrit 36.3. She had a left shift on her differential. Blood gas showed pCO2 of 27, pO2 of 78, bicarb 18.7, pH 7.46. Her O2 saturation was 95%. Chemistries showed sodium 128, potassium 4, chloride 94, carbon dioxide 20, glucose 336, serum osmolality 270.4. Lactic acid 2.2, AST 44. Cardiac enzymes were negative. Urinalysis showed 100 urine protein, 500 urine glucose, 80 urine ketones, moderate urine blood, 5 to 10 urine RBCs, too numerous to count urine WBCs, urine bacteria 2+. She was given fluids in the Emergency Room. Flu swab was also negative. She was also given some Rocephin. It is to be noted that the patient is severely diabetic as well as hypertensive but is very poorly compliant and has had no medications due to financial issues. She just recently moved back to [place] from [place]. She was admitted to the hospital. HOSPITAL COURSE: She was continued on fluids as well as Rocephin. She had insulin coverage with Humalog insulin a.c. and h.s. per sliding scale. She was also given aggressive pulmonary hygiene due to her COPD. Positive Printer Operator was consulted to help with medication and discharge plan. Because she was not on any of her medications, she was slowly restarted on some of them. The patient continued to run an elevated temperature for several days. She also complained of a headache. Her CT scans were done of the head, chest and abdomen to further rule out any infectious sources. A CRP and ESR were checked. She had a positive blood culture with gram negative bacilli and she had been changed from Rocephin to Meropenem. Levemir insulin was started at 35 units in the morning and 15 in the evening as well as Humalog per sliding scale. Blood sugars for the most part remained below 200. Blood pressure stabilized without any antihypertensives. Blood cultures were negative at 5 days except 1 aerobic bottle showed Lactobacillus jensenii. She was also given Nystatin suspension. She has completed 14 days of antibiotic therapy and she will be discharged home today in stable condition. LABORATORY: WBCs started at 5,100 and went as low as 3,300 and her final WBCs were 5.1. Hemoglobin and hematocrit were stabilized around 10.4 and 30.6. Initially she had a left shift on differential but that normalized. Blood gas is as per the History of Present Illness. Blood sugars have run between 90 and 248 over the last 5 days, although most of her blood sugars have run between 130 and 177. Aerobic blood cultures grew out Lactobacillus. RADIOLOGY: Initial abdominal x-ray showed nonspecific abdominal bowel gas pattern. Abdomen and pelvis CT showed bladder wall thickening stable and likely chronic. Recommend correlation with urinalysis given the patient's fever of unknown origin. No other findings within the chest, abdomen or pelvis to explain fever. Aortic atherosclerosis and coronary artery disease. New 1.3 cm lower pole slightly hyper attenuating left renal cyst. Recommend followup nonemergent renal ultrasound to better evaluate this lesion. Chest x-ray showed no significant air trapping, chronic bilateral perihilar peribronchial wall cuffing. No acute infiltrate. Stable since prior study. Head CT showed no intracranial hemorrhage. The temporal horn of the right lateral ventricle is prominent but no other area of ventricular dilatation seen with mild cerebellar tonsillar ectopia without alysia Chiari I malformation. Chest CT was as per the abdominal CT. DISCHARGE PLAN: The patient will be discharged home in stable condition. She is to resume her previous diet which is suggested to be a 2,000 calorie ADA. She was given diabetic education. She is to increase her activity as tolerated. She is to see Dr. Han at [facility] on 07/11/18 at 12:00 PM. She is to return to the hospital for any problems or complications. She has a file pending with Giovana Renee, Positive Printer Operator, for helping her with financial assistance. She will be sent home on Levemir 35 units in the morning as well as 15 units at bedtime and 5 units of Humalog insulin prior to each meal. She was not sent home with any prescriptions but she has been given samples. Hopefully she can get assistance when she follows-up at [facility]. At this point, I am not sending her home on any antihypertensive as her vital signs in the hospital have been fairly stable. Her blood pressures over the last 5 days have run between 134/87 and 115/75. It is also recommended that she get a followup renal ultrasound as recommended in her CT scan. DISCHARGE MEDICATIONS: 1. Levemir insulin 35 units in the morning. 2. Levemir insulin 15 units at night. 3. Humalog insulin 5 units prior to each meal. #[id number] MTDD
== END 2018-07-06 13:15 | disposition home or self-care (01) | DRG 872 ==
LOC: ER 16:47 → MS 23:16
PROVIDERS: ADMIT Nurse Practitioner Acute Care; ATTEND Nurse Practitioner Acute Care
PROC: BW251ZZ Computerized Tomography (CT Scan) of Chest, Abdomen and Pelvis using Low Osmolar Contrast (ICD-10-PCS; principal; 2018-06-24)
DX: A41.89 Other specified sepsis (principal); N39.0 Urinary tract infection, site not specified; B37.49 Other urogenital candidiasis; E87.1 Hypo-osmolality and hyponatremia; E86.0 Dehydration; R09.02 Hypoxemia; E11.65 Type 2 diabetes mellitus with hyperglycemia; E87.6 Hypokalemia; E83.42 Hypomagnesemia; E11.51 Type 2 diabetes mellitus with diabetic peripheral angiopathy without gangrene; J44.9 Chronic obstructive pulmonary disease, unspecified; I25.10 Atherosclerotic heart disease of native coronary artery without angina pectoris; I10 Essential (primary) hypertension; Z91.19 Patient's noncompliance with other medical treatment and regimen; F17.210 Nicotine dependence, cigarettes, uncomplicated; T50.906A Underdosing of unspecified drugs, medicaments and biological substances, initial encounter; Z91.120 Patient's intentional underdosing of medication regimen due to financial hardship; Y92.009 Unspecified place in unspecified non-institutional (private) residence as the place of occurrence of the external cause; E11.43 Type 2 diabetes mellitus with diabetic autonomic (poly)neuropathy; K21.9 Gastro-esophageal reflux disease without esophagitis; G43.909 Migraine, unspecified, not intractable, without status migrainosus; K31.84 Gastroparesis; G62.9 Polyneuropathy, unspecified

== ENCOUNTER 2018-10-10 16:20 | Emergency (ER) | payer SELFPAY ==
[2018-10-10] MEDS ORDERED: SODIUM CHLORIDE 0.9% (FLUSH) 10 ML SYG IV PRN (17:11)
[2018-10-10] MEDS ORDERED: ASPIRIN (CHEWABLE) 81 MG TAB PO ONE (17:11)
[2018-10-10] MEDS: NITROGLYCERIN 0.4 MG 25 EA TAB SL PRN ×2 (17:31→18:04)
--- NOTE | 2018-10-10 17:31 | RAD ---
EXAM: XR Chest, 1 View CLINICAL HISTORY: 57 years old and is Female; CHEST PAIN TECHNIQUE: Frontal view of the chest. COMPARISON: 06/23/2018. FINDINGS: Limitations: None. Lungs: Unremarkable. No consolidation. Pleural space: Unremarkable. No pneumothorax. Heart: Unremarkable. No cardiomegaly. Mediastinum: Unremarkable. Bones/joints: Unremarkable. IMPRESSION: No acute findings. Electronically signed by: Diana Castillo MD 10/10/2018 5:29 PM CDT
--- NOTE | 2018-10-10 17:36 | ED.PDOC ---
History of Present Illness - General Chief Complaint: Cardiovascular Problem Stated Complaint: CHEST PAIN Time Seen by Provider: 10/10/18 17:10 Source: patient Exam Limitations: no limitations - History of Present Illness Initial Comments: PT PRESENTS TO THE ED WITH COMPLAINT OF CHEST PAIN THAT WAS PRESENT WHEN SHE AWOKE FROM A NAP TODAY. PT DESCRIBES THE PAIN A MIDSTERNAL SQUEEZING PAIN THAT IS ABOUT A 3-4/10 AT REST AND GETS WORSE WITH EXERTION. PT REPORTS OVERALL FEELING OF MALAISE AND DOES REPORT SOME RECENT COUGH AND CONGESTION. Timing/Duration: 4-6 hours Severity/Quality: moderate Location: substernal Chest Pain Radiation: no radiation Activities at Onset: none Improving Factors: rest Worsening Factors: movement Nitro Today/Relief: no nitro taken today Aspirin Treatment Today: no aspirin today Associated Symptoms: abdominal pain, shortness of breath Allergies/Adverse Reactions: Allergies NO KNOWN ALLERGY Allergy (Verified 11/08/17 11:25) Home Medications: Ambulatory Orders Insulin Detemir [Levemir Pen] 15 units SUBCU BEDTIME pen 07/06/18 Insulin Detemir [Levemir Pen] 35 units SUBCU DAILY pen 07/06/18 Insulin Lispro [Humalog] 5 units SUBCU AC pen 07/06/18 Review of Systems - Review of Systems Constitutional: States: malaise. Denies: chills, fever EENTM: States: nose congestion. Denies: throat pain Respiratory: States: see HPI, cough, short of breath Cardiology: States: chest pain. Denies: palpitations, syncope Gastrointestinal/Abdominal: Denies: constipation, diarrhea, nausea Genitourinary: Denies: dysuria, frequency, hematuria Musculoskeletal: Denies: joint pain, joint swelling, muscle pain Skin: Denies: dryness, lesions Neurological: Denies: headache, numbness Endocrine: States: no symptoms reported Past Medical History (General) - Patient Medical History Hx Seizures: No Hx Stroke: No Hx Dementia: No Hx Asthma: Yes Hx of COPD: Yes Hx Cardiac Disorders: No Hx Congestive Heart Failure: No Hx Pacemaker: No Hx Hypertension: Yes Hx Thyroid Disease: No Hx Diabetes: Yes Hx Gastroesophageal Reflux: Yes Hx Renal Disease: No Hx Cancer: No Hx of HIV: No Hx Hepatitis C: No Hx MRSA: Yes MRSA Source:: Wound Surgical History: appendectomy, cholecystectomy, Hysterectomy - Vaccination History Hx Tetanus, Diphtheria Vaccination: No Hx Influenza Vaccination: No Hx Pneumococcal Vaccination: Yes - Social History Hx Tobacco Use: Yes Hx Chewing Tobacco Use: No Hx Alcohol Use: No Hx Substance Use: No Hx Substance Use Treatment: No Hx Depression: Yes Hx Physical Abuse: No Hx Emotional Abuse: No Hx Suspected Abuse: No - Female History Hx Last Menstrual Period: 04/28/00 Patient : No Family Medical History - Family History Mother Living Status: Hx Family Hypertension: Yes - parents Hx Cardiac Disease: Yes Hx Family Diabetes: Yes - parents Hx Family Cancer: Yes - dad-prostate;sister-breast Father Living Status: Cause of : [place] Daughter Family History: Unknown Living Status: Physical Exam - Physical Exam General Appearance: Alert, No apparent distress, Obese, Well Developed, Well Hydrated, Well Nourished Eyes, Ears, Nose, Throat Exam: normal ENT inspection Neck: normal inspection Respiratory: lungs clear, normal breath sounds, no respiratory distress Cardiovascular/Chest: regular rate, rhythm, no murmur Gastrointestinal/Abdominal: non tender, soft Extremity: non-tender, normal inspection Neurologic: alert, normal mood/affect, oriented x 3 Skin Exam: normal color, warm/dry Progress - Progress Progress: 10/10/18 18:35 PT REPORTS NO IMPROVEMENT IN PAIN AFTER 2 SL NTG. LABS, DIAGNOSTICS, AND PLAN TO TRANSFER DISCUSSED. - Results/Orders Results/Orders: Laboratory Tests 10/10/18 10/10/18 10/10/18 17:10 17:15 17:15 WBC 6.8 RBC 4.57 Hgb 13.0 Hct 39.2 MCV 85.8 MCH 28.4 MCHC 33.1 RDW 15.5 H Plt Count 348 MPV 7.0 L Absolute Neuts (auto) 4.60 Absolute Lymphs (auto) 1.60 Absolute Monos (auto) 0.50 Absolute Eos (auto) 0.10 Absolute Basos (auto) 0.00 Neutrophils % 67.8 Lymphocytes % 23.6 Monocytes % 6.8 Eosinophils % 1.2 Basophils % 0.6 PT 9.3 INR 0.93 PTT (SP) 22.6 Sodium 132 L Potassium 4.3 Chloride 97 L Carbon Dioxide 22 Anion Gap 17.3 BUN 17 Creatinine 0.65 BUN/Creatinine Ratio 26.2 H Random Glucose 528 H* Serum Osmolality 289.8 Calcium 9.2 Magnesium 2.2 Creatine Kinase 84 CK-MB (CK-2) 3.5 CK-MB (CK-2) % Not Reportable Troponin I 0.03 Urine Color Straw Urine Appearance Sl cloudy Urine pH 6.0 Ur Specific [place] 1.010 Urine Protein Trace Urine Glucose (UA) 500 H Urine Ketones Negative Urine Blood Moderate H Urine Nitrite Negative Urine Bilirubin Negative Urine Urobilinogen 0.2 Ur Leukocyte Esterase Negative Urine RBC 5-10 H Urine WBC 0-1 Ur Epithelial Cells 3-5 Urine Bacteria Rare Urine Opiates Screen Negative Urine Barbiturates Negative Ur Phencyclidine Scrn Negative U Amphetamin/Meth Scrn Negative U Benzodiazepines Scrn Negative U Cocaine Metab Screen Negative U Cannabinoids Screen Negative - EKG/XRAY/CT EKG: Sinus - @98BPM, NL INTERVALS, LAD, nonspecific ST T wave Chg, Abnormal Q waves - INFERIOR AND ANTERIOR LEADS, Unchanged from - 03/14 - Additional EKG/XRAY/Consults EKG #2: Sinus - @93BPM, NL INTERVALS, NL AXIS, nonspecific ST T wave Chg, Unchanged from - PREVIOUS EKG DONE TODAY Departure - Departure Clinical Impression: Chest pain, Hyperglycemia due to type 2 diabetes mellitus, New-onset angina Time of Disposition: 18:34 Disposition: Transfer to Hospital Condition: Fair Departure Forms: ED Discharge - Pt. Copy, Patient Portal Self Enrollment Instructions: DI for Chest Pain Referrals: Venecia Stratton NP [Primary Care Provider] - 1-2 Weeks Home Medications: Ambulatory Orders Insulin Detemir [Levemir Pen] 15 units SUBCU BEDTIME pen 07/06/18 Insulin Detemir [Levemir Pen] 35 units SUBCU DAILY pen 07/06/18 Insulin Lispro [Humalog] 5 units SUBCU AC pen 07/06/18 Transfer to Outside Facility - Transfer Information Accepting Provider:: DR. 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
[2018-10-10] MEDS ORDERED: INSULIN, REG.(HUMAN) 100 U/ML VIAL SUBCU ONE (18:24)
[2018-10-10 18:56] VITALS: BP 161/87
[2018-10-10] MEDS ORDERED: MORPHINE SULFATE INJ 10 MG/ML VIAL IV ONE (18:58)
[2018-10-10 19:12] VITALS: TEMP 96.6; O2SAT 98
== END 2018-10-10 19:15 | disposition short-term general hospital (02) ==
LOC: ER 16:20
DX: I20.9 Angina pectoris, unspecified (principal); E11.65 Type 2 diabetes mellitus with hyperglycemia; R05 Cough; R06.02 Shortness of breath; J44.9 Chronic obstructive pulmonary disease, unspecified; I10 Essential (primary) hypertension; K21.9 Gastro-esophageal reflux disease without esophagitis; F32.9 Major depressive disorder, single episode, unspecified; Z90.49 Acquired absence of other specified parts of digestive tract; Z87.891 Personal history of nicotine dependence; Z79.4 Long term (current) use of insulin; Z79.899 Other long term (current) drug therapy
CPT/HCPCS: 36415; 71045; 80048; 80307; 81001; 82550; 82553; 84484; 85025; 85610; 85730; 93005; J2270

== ENCOUNTER 2018-10-19 13:41 | Inpatient (IN) | payer SELFPAY ==
[2018-10-19] MEDS ORDERED: LIDOCAINE 1% 10 ML VIAL INJ ONE (14:04)
[2018-10-19] MEDS ORDERED: VANCOMYCIN HCL INJ 1,000 MG in SODIUM CHLORIDE 0.9% 250ML 250 ML IVPB ONE (14:22)
[2018-10-19] MEDS ORDERED: PIPERACILLIN/TAZOBACTAM 3.375 GM in SODIUM CHLORIDE 0.9% 100ML 100 ML IVPB ONE (14:24)
[2018-10-19] MEDS ORDERED: SODIUM CHLORIDE 0.9% 100ML 100 ML IVPB ONE ×2 (14:52→19:20)
[2018-10-19] MEDS ORDERED: PIPERACILLIN/TAZOBACTAM 3.375 GM VIAL IVPB ONE ×2 (14:52→19:20)
[2018-10-19] MEDS ORDERED: INSULIN LISPRO 100 UNITS/ML PEN SUBCU ONE (15:36)
[2018-10-19] MEDS ORDERED: SODIUM CHLORIDE 0.9% 1000ML 1,000 ML IVS ONE ×2 (15:39→18:56)
--- NOTE | 2018-10-19 15:41 | ED.PDOC ---
History of Present Illness - General Chief Complaint: General Stated Complaint: right jaw pain Time Seen by Provider: 10/19/18 14:22 Source: patient Exam Limitations: no limitations - History of Present Illness Initial Comments: the patient is a 57-year-old female presenting to the emergency room secondary to swelling over her right parotid gland last 3-4 days. She has been having low-grade fevers. She has signcant pain in the area. The area is simply getting more tense. Her blood sugars have started to be more difficult to control. No syncope or near syncope. No other areas of obvious inflammation or infection currently. Timing/Duration: other - 3-4 days Improving Factors: nothing Worsening Factors: nothing Associated Symptoms: fever/chills, loss of appetite, malaise Allergies/Adverse Reactions: Allergies NO KNOWN ALLERGY Allergy (Verified 11/08/17 11:25) Home Medications: Ambulatory Orders Insulin Detemir [Levemir Pen] 15 units SUBCU BEDTIME pen 07/06/18 Insulin Detemir [Levemir Pen] 35 units SUBCU DAILY pen 07/06/18 Insulin Lispro [Humalog] 5 units SUBCU AC pen 07/06/18 Review of Systems - Review of Systems Constitutional: States: fever, malaise EENTM: States: ear pain Respiratory: States: no symptoms reported Cardiology: States: no symptoms reported Gastrointestinal/Abdominal: States: nausea Genitourinary: States: no symptoms reported Musculoskeletal: States: other - chronic muscular skeletal pain issues Skin: States: see HPI Neurological: States: no symptoms reported - chronic neuropathy Endocrine: States: no symptoms reported All other Systems: No Change from Baseline Past Medical History (General) - Patient Medical History Hx Seizures: No Hx Stroke: No Hx Dementia: No Hx Asthma: Yes Hx of COPD: Yes Hx Cardiac Disorders: No Hx Congestive Heart Failure: No Hx Pacemaker: No Hx Hypertension: Yes Hx Thyroid Disease: No Hx Diabetes: Yes Hx Gastroesophageal Reflux: Yes Hx Renal Disease: No Hx Cancer: No Hx of HIV: No Hx Hepatitis C: No Hx MRSA: Yes MRSA Source:: Wound - Vaccination History Hx Tetanus, Diphtheria Vaccination: No Hx Influenza Vaccination: No Hx Pneumococcal Vaccination: Yes - Social History Hx Tobacco Use: Yes Hx Chewing Tobacco Use: No Hx Alcohol Use: No Hx Substance Use: No Hx Substance Use Treatment: No Hx Depression: Yes Hx Physical Abuse: No Hx Emotional Abuse: No Hx Suspected Abuse: No - Female History Hx Last Menstrual Period: 04/28/00 Patient : No Family Medical History - Family History Mother Living Status: Hx Family Hypertension: Yes - parents Hx Cardiac Disease: Yes Hx Family Diabetes: Yes - parents Hx Family Cancer: Yes - dad-prostate;sister-breast Father Living Status: Cause of : [place] Daughter Family History: Unknown Living Status: Physical Exam - Physical Exam General Appearance: Alert, Other - obviously uncomfortable Eye Exam: bilateral normal Ears, Nose, Throat: hearing grossly normal, normal pharynx, nasal congestion Neck: full range of motion, other - the patient has swelling just below and anterior to the right ear. It is tender to palpation and somewhat red. There is no drainage at this point. Tenderness extends all the way up to the level even with the eye and all of the wayposteriorly to the mastoid process. 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 The right ear itself does not appear to be infected. This is most likely infection coming from the parotid gland. Less likely is an extension from a mastoid infection. Blood culture has been done along with wound culture. Ultrasound was used for evaluation of the area and a liquefied area in the center was identified and aspirated with an 18-gauge needle showing alysia pus. A 15 blade scalpel and hemostats were used to dissect down to the area and allow for further drainage. Only about 1.5 cc of pus were obtained in total. Patient tolerated the procedure well. risks and benefits of this were explained to the patient prior, who agreed to proceed. the patient has a history of multiple recurrent infections and rapid onset sepsis in the presence of her brittle insulin-dependent diabetes. For this reason the patient is going to be placed on IV antibiotics and brought in as an inpatient for a couple of days to make sure that the abscess does not reform and the cellulitis does not spread or cause sepsis. Admit for above reasons. The patient is also receiving a liter of IV fluids to help with hydration purposes in light of probable parotitis. It should also help to smooth out her blood sugar control and be renal protective in the face of current medications. she is currently receiving 7 units of insulin lispro for her hyperglycemia here. 10/19/18 15:49 - Results/Orders Results/Orders: Laboratory Tests 10/19/18 10/19/18 10/19/18 14:48 14:48 14:48 WBC 10.6 RBC 4.65 Hgb 13.6 Hct 40.2 MCV 86.4 MCH 29.2 MCHC 33.8 RDW 16.0 H Plt Count 374 MPV 6.9 L Absolute Neuts (auto) 8.20 H Absolute Lymphs (auto) 1.60 Absolute Monos (auto) 0.60 Absolute Eos (auto) 0.10 Absolute Basos (auto) 0.10 Neutrophils % 77.6 Lymphocytes % 14.8 L Monocytes % 5.8 Eosinophils % 1.2 Basophils % 0.6 PT < 8.9 L INR < 1.00 PTT (SP) 23.2 Sodium 132 L Potassium 4.1 Chloride 97 L Carbon Dioxide 22 Anion Gap 17.1 BUN 14 Creatinine 0.67 BUN/Creatinine Ratio 20.9 H Random Glucose 386 H Serum Osmolality 281.0 Lactic Acid Calcium 9.5 Total Bilirubin 0.3 AST 20 ALT 24 Alkaline Phosphatase 129 H Serum Total Protein 8.0 Albumin 3.5 Globulin 4.5 H Albumin/Globulin Ratio 0.8 L 10/19/18 14:48 WBC RBC Hgb Hct MCV MCH MCHC RDW Plt Count MPV Absolute Neuts (auto) Absolute Lymphs (auto) Absolute Monos (auto) Absolute Eos (auto) Absolute Basos (auto) Neutrophils % Lymphocytes % Monocytes % Eosinophils % Basophils % PT INR PTT (SP) Sodium Potassium Chloride Carbon Dioxide Anion Gap BUN Creatinine BUN/Creatinine Ratio Random Glucose Serum Osmolality Lactic Acid 1.2 Calcium Total Bilirubin AST ALT Alkaline Phosphatase Serum Total Protein Albumin Globulin Albumin/Globulin Ratio Departure - Departure Clinical Impression: Suppurative parotitis, Facial abscess Uncontrolled diabetes mellitus Qualifiers: Diabetes mellitus type: type 1 Glycemic state: with hyperglycemia Qualified Code(s): E10.65 - Type 1 diabetes mellitus with hyperglycemia Disposition: Admit Patient Departure Forms: ED Discharge - Pt. Copy, Patient Portal Self Enrollment Home Medications: Ambulatory Orders Insulin Detemir [Levemir Pen] 15 units SUBCU BEDTIME pen 07/06/18 Insulin Detemir [Levemir Pen] 35 units SUBCU DAILY pen 07/06/18 Insulin Lispro [Humalog] 5 units SUBCU AC pen 07/06/18 Decision To Admit - Decistion To Admit Decision to Admit Reason: Medical Nature Decision to Admit Date: 10/19/18 Decision to Admit Time: 15:49
[2018-10-19] MEDS ORDERED: VANCOMYCIN HCL INJ 1,000 MG VIAL IVPB ONE (15:44)
[2018-10-19] MEDS ORDERED: SODIUM CHLORIDE 0.9% 250ML 250 ML ONE (15:44)
--- NOTE | 2018-10-19 16:27 | HP ---
SUPERVISING PHYSICIAN: Misha Hall M.D. CHIEF COMPLAINT: Right jaw pain with swelling. HISTORY OF PRESENT ILLNESS: This is a 57 year-old female patient that came to the Emergency Room today secondary to swelling in her right jaw and parotid gland that started about a week ago. It started as a very small bump and then actually went away, and then about 2 to 3 days ago it progressively worsened with swelling and tightness and pain. She also had chills. She was in [place] about 10 days ago due to chest pain. She has had chest pain on and off for about 2 months. She actually went to [facility] but said she does need some cardiac testing, but until her blood sugars and blood pressure were under control that they could not do that. She saw Dr. Alvarez in [place] and he put her on a blood pressure medicine. She was also put on Levemir insulin. Her vital signs initially in the E. R. were temperature 99.2 with heart rate of 97, blood pressure 179/102, respiratory rate 20, O2 sat is 95% on room air. Lab was done. She had a sodium of 132, potassium 4.1, chloride 97, BUN 14, creatinine 0.67, glucose 386. Lactic acid was 1.2, alkaline phosphatase 129. WBCs were 10,600. Blood cultures were drawn. Dr. Guerrero, the [facility] physician, actually did a incision and drainage on the area on her jaw and the wound culture was sent. She was given fluids as well as some insulin. She was also started on Zosyn and some vancomycin. I was called for hospital admission. PAST MEDICAL HISTORY: 1. Hypertension. 2. Coronary artery disease. 3. Chronic obstructive pulmonary disease. 4. Diabetes mellitus poorly controlled. 5. Peripheral neuropathy due to diabetes. 6. Peripheral vascular disease with stent to the right iliac. 7. Gastroesophageal reflux disease. 8. Chronic tobacco abuse. 9. History of MRSA in the wound with poor healing due to diabetes mellitus. PAST SURGICAL HISTORY: 1. Hysterectomy. 2. Cholecystectomy. 3. Dilatation and curettage times 2. 4. Multiple toe amputations. CURRENT MEDICATIONS: ALLERGIES: NO KNOWN DRUG ALLERGIES. FAMILY HISTORY: Positive for cancer, diabetes, stroke and heart attack. SOCIAL HISTORY: She smokes approximately 1 pack of cigarettes daily. She has smoked for many years. She drinks alcoholic beverages rarely. There is no history of illicit drug use. She lives in [place]. Her boyfriend was just recently admitted to hospice care. REVIEW OF SYSTEMS: Positive for fever and chills. Negative for weight changes. HEENT: Positive for right ear pain. Negative for sinus symptoms, vision changes or sore throat. RESPIRATORY: Positive for chronic shortness of breath. Negative for coughing or wheezing. CARDIAC: Positive for chest pain times 2 months. She just recently had a workup in [place] that ruled out acute coronary syndrome, but she does need a cardiac workup at some point. Negative for palpitations or tachycardia. GASTROINTESTINAL: Positive for nausea. Negative for vomiting, diarrhea or constipation. NEUROLOGIC: Negative for headaches, dizziness or seizures. SKIN: As per History of Present Illness. PHYSICAL EXAMINATION: VITAL SIGNS: Temperature 98, heart rate 95, blood pressure 168/90, respiratory rate 20, O2 sat 100% on room air. GENERAL: This is a 57 year-old female patient lying in her hospital bed. She is in no acute distress. HEENT: Normocephalic and atraumatic. Pupils are equal and reactive. Oropharynx is clear. She has very poor dentition. I am unable to see if there is any dental involvement on that right lower jaw area. NECK: Supple without mass. RESPIRATORY: Diminished at the bases but otherwise clear to auscultation. CHEST: There is equal rise and fall of the chest with inspiration and expiration. CARDIOVASCULAR: Regular rate and rhythm. GASTROINTESTINAL: Abdomen is soft, nondistended, non-tender. Bowel sounds are positive. SKIN: She has swelling just below and anterior to the right ear. It is very tender to palpation and erythematous. There is no drainage but maybe some mild fluctuance. NEUROLOGIC: She is awake, alert and oriented times three. She seems to be somewhat depressed. Cranial nerves II-XII are grossly intact. LABORATORY: ESR is pending. CRP is 5.3. Wound and blood cultures are pending. ASSESSMENT: 1. Cellulitis of the right facial/parotid gland with concerns for developing sepsis. 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 2. Hyperglycemia on admission with history of poorly controlled diabetes mellitus Type 2. 3. Diabetes mellitus type 2 on insulin therapy. 4. Chronic obstructive pulmonary disease without exacerbation. 5. Gastroesophageal reflux disease. 6. Tobacco abuse. 7. Depression due to situational stress. PLAN: I have admitted the patient to the hospital. I have given her some fluids. She continues with Zosyn and vancomycin will be per Pharmacy protocol. She will be on a PPI for ulcer prophylaxis and Lovenox for DVT prophylaxis. I have restarted her home medications and added blood sugars to be checked a.c. and h.s. with sliding scale Humalog insulin. She will need extensive diabetic teaching. I have also run a hemoglobin A1c. We discussed smoking cessation and I have given her breathing treatments both scheduled and p.r.n. with aggressive pulmonary hygiene. Will monitor cultures as they become available. I may need to start her on a mild antidepressant due to her situational depression but I will discuss that with her tomorrow. I have ordered repeat lab for in the morning as well as a sonogram of the soft tissue of her right neck. Will continue to monitor closely and follow as needed. #[id number] MTDD
[2018-10-19] MEDS ORDERED: HYDROmorphone HCL INJ 2 MG/ML VIAL IV ONE (16:44)
[2018-10-19] MEDS ORDERED: KETOROLAC TROMETHAMINE INJ 30 MG/ML VIAL IV ONE (16:44)
[2018-10-19] MEDS ORDERED: ALBUTEROL SULFATE 2.5 MG/3 ML VIAL NEB PRN (18:52)
[2018-10-19] MEDS ORDERED: GLUCAGON INJ 1 MG VIAL SUBCU PRN (18:52)
[2018-10-19] MEDS ORDERED: ACETAMINOPHEN 325 MG TAB PO PRN (18:52)
[2018-10-19] MEDS ORDERED: DEXTROSE 50% 25 GM/50 ML SYG IV PRN (18:52)
[2018-10-19] MEDS ORDERED: SODIUM CHLORIDE 0.9% (FLUSH) 10 ML SYG IV PRN (18:52)
[2018-10-19] MEDS ORDERED: INSULIN DETEMIR 100 UNITS/ML PEN SUBCU ONE (19:20)
[2018-10-19] MEDS: IV SET AND CAP CHANGE INJ INJ SCH (19:36)
[2018-10-19] MEDS: PIPERACILLIN/TAZOBACTAM 3.375 GM in SODIUM CHLORIDE 0.9% 100ML 100 ML IVPB SCH (19:37)
[2018-10-19] MEDS: ALBUTEROL SULFATE 2.5 MG/3 ML VIAL NEB SCH (20:20)
[2018-10-19] MEDS ORDERED: INSULIN DETEMIR 100 UNITS/ML PEN SUBCU SCH (21:00)
[2018-10-19] MEDS: INSULIN LISPRO 100 UNITS/ML PEN SUBCU SCH (21:00)
[2018-10-19] MEDS: ENOXAPARIN SODIUM 40 MG/0.4 ML SYG SUBCU SCH (21:01)
[2018-10-19] MEDS: SODIUM CHLORIDE 0.9% (FLUSH) 10 ML SYG IV SCH (21:02)
[2018-10-19] MEDS: HYDROcodone 5MG/APAP 325MG 1 EA TAB PO PRN (21:11)
[2018-10-19] MEDS: NICOTINE PATCH 14 MG TD SCH (21:29)
[2018-10-20] MEDS ORDERED: PIPERACILLIN/TAZOBACTAM 3.375 GM VIAL IVPB ONE ×3 (00:37→19:34)
[2018-10-20] MEDS ORDERED: SODIUM CHL 0.9% 100ML MINI-BAG 100 ML IVPB ONE (00:37)
[2018-10-20] MEDS: PIPERACILLIN/TAZOBACTAM 3.375 GM in SODIUM CHLORIDE 0.9% 100ML 100 ML IVPB SCH ×3 (02:29→19:47)
[2018-10-20] MEDS: HYDROcodone 5MG/APAP 325MG 1 EA TAB PO PRN ×5 (03:25→21:15)
[2018-10-20] MEDS ORDERED: PANTOPRAZOLE SODIUM IV 40 MG VIAL IV SCH (06:30)
[2018-10-20] MEDS ORDERED: VANCOMYCIN PER PHARMACY INJ SCH (07:00)
[2018-10-20] MEDS: INSULIN LISPRO 100 UNITS/ML PEN SUBCU SCH ×4 (07:13→21:07)
[2018-10-20] MEDS: NICOTINE PATCH 14 MG TD SCH (07:59)
[2018-10-20] MEDS: SODIUM CHLORIDE 0.9% (FLUSH) 10 ML SYG IV SCH ×2 (07:59→21:11)
[2018-10-20] MEDS: ALBUTEROL SULFATE 2.5 MG/3 ML VIAL NEB SCH ×4 (08:16→19:30)
[2018-10-20] MEDS ORDERED: INSULIN DETEMIR 100 UNITS/ML PEN SUBCU SCH (08:54)
--- NOTE | 2018-10-20 09:43 | US ---
EXAM DESCRIPTION: Parotid: ULTRASOUND. CLINICAL HISTORY: 57 years Female cellulitis COMPARISON: None Available. TECHNIQUE: Transcutaneous scanning: [place]-scale and Doppler modes. FINDINGS: Irregular hypoechoic mass in the region of interest right cheek, lobulated and circumscribed margins mostly hypoechoic. Dimensions are 2.1 x 2.3 x 1.6 cm. Nonvascular. A tract is seen to the skin surface. No dominant solid mass. No simple distinct cyst. No large calcifications. IMPRESSION: Probable abscess right cheek. Not vascular. Tract to the skin. Electronically signed by: Kip Cordero MD 10/20/2018 9:42 AM CDT
[2018-10-20] MEDS ORDERED: SODIUM CHLORIDE 0.9% 250ML 250 ML ONE ×2 (10:41→21:01)
[2018-10-20] MEDS ORDERED: VANCOMYCIN HCL INJ 500 MG VIAL ONE ×2 (10:41→21:01)
[2018-10-20] MEDS ORDERED: VANCOMYCIN HCL INJ 1,000 MG VIAL IVPB ONE ×2 (10:42→21:01)
[2018-10-20] MEDS: VANCOMYCIN HCL INJ 1,000 MG, VANCOMYCIN HCL INJ 250 MG in SODIUM CHLORIDE 0.9% 250ML 25... IVPB SCH ×2 (10:43→21:11)
[2018-10-20] MEDS ORDERED: SODIUM CHLORIDE 0.9% 100ML 100 ML IVPB ONE ×2 (12:36→19:34)
[2018-10-20] MEDS: CITALOPRAM HBR 20 MG TAB PO SCH (15:11)
[2018-10-20] MEDS: ENOXAPARIN SODIUM 40 MG/0.4 ML SYG SUBCU SCH (21:10)
--- NOTE | 2018-10-20 22:21 | PN ---
DATE: 10/20/18 SUPERVISING PHYSICIAN: Misha Hall M.D. SUBJECTIVE: The patient is sitting up in bed. She complains of pain in that right cheek, but she does say it has improved since yesterday and her pain medications are helping. She does feel like it is still tight but has no nausea or vomiting. No shortness of breath or chest pain. OBJECTIVE: VITAL SIGNS: Temperature 98.1, heart rate 72, blood pressure 128/71, respiratory rate 18, O2 sat 96% on room air. RESPIRATORY: Essentially clear to auscultation bilaterally. CARDIAC: Regular rate and rhythm. GASTROINTESTINAL: Abdomen is soft, nondistended, non-tender. Bowel sounds are positive. SKIN: The area to her right cheek is less erythematous and less swollen. There is no fluctuance or drainage noted. NEURO:LOGIC: She is awake, alert and oriented times three. LABORATORY: WBC are 6.8 with hemoglobin 11.1, hematocrit 33.1, ESR 56. Electrolytes are basically within normal limits. Blood sugars have run between 133 and 398. AST 151, ALT 86, alkaline phosphatase 208. Wound culture is pending. Preliminary blood cultures show no growth after 24 hours. Parotid ultrasound shows probable abscess of the right cheek. Not vascular. Tract to the skin. All other labs and films have been reviewed via the EMR. ASSESSMENT: 1. Cellulitis of the right facial/parotid gland with concerns for developing sepsis. 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 2. Hyperglycemia on admission with history of poorly controlled diabetes mellitus Type 2. Current hemoglobin A1c is 12.3. 3. Diabetes mellitus type 2 on insulin therapy. Present hemoglobin A1c is 12.3. 4. Chronic obstructive pulmonary disease without exacerbation. 5. Gastroesophageal reflux disease. 6. Tobacco abuse. 7. Depression due to situational stress. PLAN: We will continue present supportive care. Her IV fluids have been discontinued. She will continue with the Zosyn and vancomycin. I have increased her Levemir insulin and we will try to aggressively help her get her blood sugars under control. I have also added some Celexa to help with her depression. I will hold on her labs for a day or so. I have also spoken with Dr. Misha Penaloza, general surgeon. I have consulted him for wound management. Will continue to monitor closely and follow as needed. #[id number] MTDD
[2018-10-21] MEDS: HYDROcodone 5MG/APAP 325MG 1 EA TAB PO PRN ×5 (01:26→21:01)
[2018-10-21] MEDS ORDERED: SODIUM CHLORIDE 0.9% 100ML 100 ML IVPB ONE ×3 (02:53→17:43)
[2018-10-21] MEDS ORDERED: PIPERACILLIN/TAZOBACTAM 3.375 GM VIAL IVPB ONE ×3 (02:53→17:43)
[2018-10-21] MEDS: PIPERACILLIN/TAZOBACTAM 3.375 GM in SODIUM CHLORIDE 0.9% 100ML 100 ML IVPB SCH ×3 (02:54→18:22)
[2018-10-21] MEDS: PANTOPRAZOLE SODIUM TAB 40 MG PO SCH (06:23)
[2018-10-21] MEDS: INSULIN LISPRO 100 UNITS/ML PEN SUBCU SCH ×4 (07:27→20:58)
[2018-10-21] MEDS ORDERED: SODIUM CHLORIDE 0.9% 250ML 250 ML ONE ×2 (08:14→19:15)
[2018-10-21] MEDS ORDERED: VANCOMYCIN HCL INJ 1,000 MG VIAL IVPB ONE ×2 (08:14→19:15)
[2018-10-21] MEDS ORDERED: VANCOMYCIN HCL INJ 500 MG VIAL ONE ×2 (08:14→19:15)
[2018-10-21] MEDS ORDERED: MAGNESIUM SULFATE PREMIX 2GM 2 GM in PREMIX BAG 1 BAG IVPB ONE (08:17)
[2018-10-21] MEDS: ALBUTEROL SULFATE 2.5 MG/3 ML VIAL NEB SCH ×4 (08:34→19:22)
[2018-10-21] MEDS: CITALOPRAM HBR 20 MG TAB PO SCH (08:50)
[2018-10-21] MEDS: NICOTINE PATCH 14 MG TD SCH (08:51)
[2018-10-21] MEDS: SODIUM CHLORIDE 0.9% (FLUSH) 10 ML SYG IV SCH ×2 (08:52→21:02)
[2018-10-21] MEDS: VANCOMYCIN HCL INJ 1,000 MG, VANCOMYCIN HCL INJ 250 MG in SODIUM CHLORIDE 0.9% 250ML 25... IVPB SCH ×2 (08:54→21:02)
[2018-10-21] MEDS ORDERED: MAGNESIUM SULFATE PREMIX 2GM 50 ML IVPB ONE (08:59)
[2018-10-21] MEDS: HYDROcodone 5MG/APAP 325MG 1 EA TAB PO SCH (14:12)
--- NOTE | 2018-10-21 14:43 | CT ---
PROCEDURE: CT Neck With Intravenous Contrast CLINICAL INDICATION: The patient is 57 years years old, Female; cellulitis right neck/jaw TECHNIQUE: Axial computed tomography images of the neck with intravenous contrast. Sagittal and coronal reformatted images were created and reviewed. This CT exam was performed using one or more of the following dose reduction techniques: automated exposure control, adjustment of the mA and/or kV according to patient size, and/or use of iterative reconstruction technique. COMPARISON: No relevant prior studies available. FINDINGS: BRAIN: The visualized intracranial contents are unremarkable. OROPHARYNX: Unremarkable. No significant tonsillar enlargement. No peritonsillar abscess. HYPOPHARYNX: Unremarkable. LARYNX: Unremarkable. Normal epiglottis. TRACHEA: Unremarkable. RETROPHARYNGEAL SPACE: Unremarkable. SUBMANDIBULAR/PAROTID GLANDS: There is enlargement and enhancement of the right parotid gland with adjacent fat reticulation. There is also a fluid collection within the inferior and posterior aspect of the right parotid gland measuring 2 cm x 1.7 cm x 1.2 cm with an attenuation of 23 Hounsfield units. The left parotid and bilateral submandibular salivary glands are unremarkable. THYROID: There is thickening of the isthmus of the thyroid gland up to 1.4 cm AP the right and left lobes are unremarkable. No discernible thyroid nodules are seen. BONES/JOINTS: There are no discernible acute fractures or areas of osseous destruction or osteoblastic lesions. SOFT TISSUES: There is preseptal soft tissue swelling on the right which is not fully demonstrated cephalocaudally. VASCULATURE: Unremarkable. LYMPH NODES: Unremarkable. There is no evidence of hilar, mediastinal or axillary adenopathy. MASTOID AIR CELLS: There is enlargement of the right sternocleidomastoid with a tubular shaped lucency along the long axis of the anterior proximal half of the sternocleidomastoid which measures up to 1.9 cm AP by 1.3 cm T by 5.2 cm CC concerning for contiguous myositis with intramuscular abscess. DENTAL: There are multiple absent maxillary and mandibular teeth. There is an apical abscess involving the right lower second molar with dehiscence along the labial cortex. However, the periodontal soft tissues are not clearly discernible due to artifact from adjacent dental hardware. Stensen's duct is not dilated and there is no discernible sialolith. However, the study is limited by artifacts generated by dental hardware. LUNG APICES: Unremarkable as visualized. PLEURAL SPACE: The visualized lung apices demonstrate nonspecific interstitial prominence without consolidation, pleural effusions or pneumothoraces. OTHER FINDINGS: Electronically signed by: Regina Colunga MD 10/21/2018 2:40 PM CDT IMPRESSION: 1. Findings concerning for right parotitis with small parotid abscess posteriorly and inferiorly. 2. There is enlargement of the right sternocleidomastoid with a tubular shaped lucency along the long axis of the anterior proximal half of the sternocleidomastoid which measures up to 1.9 cm AP by 1.3 cm T by 5.2 cm CC concerning for contiguous myositis with intramuscular abscess. 3. There is preseptal soft tissue swelling on the right which is not fully demonstrated cephalocaudally. 4. There are multiple absent maxillary and mandibular teeth. There is an apical abscess involving the right lower second molar with dehiscence along the labial cortex. However, the periodontal soft tissues are not clearly discernible due to artifact from adjacent dental hardware. Electronically signed by: Regina Colunga MD 10/21/2018 2:41 PM CDT
--- NOTE | 2018-10-21 14:44 | PN ---
DATE: 10/21/18 SUPERVISING PHYSICIAN: Misha Hall M.D. SUBJECTIVE: The patient is sitting up in bed. She said she is feeling worse today, although the pain is more localized in her right jaw. Otherwise she has no shortness of breath, nausea, vomiting or chest pain. OBJECTIVE: VITAL SIGNS: Temperature 98.2, heart rate 83, blood pressure 145/78, respiratory rate 18, O2 sat 97% on room air. HEENT: The right jaw line is much less edematous than yesterday. It is localized to just inferior to the ear lobe. There is an area of erythema that is less than 3 cm in diameter. It is very tender to palpation but there is no fluctuance or drainage noted. RESPIRATORY: Essentially clear to auscultation bilaterally. CARDIAC: Regular rate and rhythm. GASTROINTESTINAL: Abdomen is soft, nondistended, non-tender. Bowel sounds are positive. NEUROLOGIC: She is awake, alert and oriented times three. LABORATORY: WBCs are 6.3, hemoglobin 10.5, hematocrit 30.9. Chemistries are basically within normal limits with the exception of her magnesium is slightly low at 1.7. Blood sugars have run between 151 and 359. AST 56, ALT 95, alkaline phosphatase 192. Wound culture is pending. Preliminary blood cultures show no growth after 24 hours. All other labs and films have been reviewed via the EMR. ASSESSMENT: 1. Cellulitis of the right facial/parotid gland with concerns for developing sepsis. 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 2. Hyperglycemia on admission with history of poorly controlled diabetes mellitus Type 2. Current hemoglobin A1c is 12.3. 3. Diabetes mellitus type 2 on insulin therapy. Present hemoglobin A1c is 12.3. 4. Chronic obstructive pulmonary disease without exacerbation. 5. Gastroesophageal reflux disease. 6. Tobacco abuse. 7. Depression due to situational stress. PLAN: We will continue present supportive care. Continue to watch for her wound cultures as they become available. Hopefully she can be discharged on oral antibiotics after we receive the culture and sensitivities. I have increased her Levemir insulin to 25 units at night. I will also do a CT of the jaw. I have given her magnesium replacement and I will order lab for in the morning to include a CRP and ESR. Dr. Penaloza saw the patient yesterday and he felt that there was no operative intervention that was necessary at this time. Will continue to monitor closely and follow as needed. #[id number] [facility]
--- NOTE | 2018-10-21 15:47 | PCM.PROG ---
PCM Subjective - Review of Systems Events since last encounter: Overall looks and feels better. Redness as marked has decreased markedly as has the induration HEENT: States: Head Aches Musculoskeletal: States: Neck Pain - at area of abscess Objective - Exam Vitals and I&O: Vital Signs Temp 98.6 F 10/21/18 14:00 Pulse 74 10/21/18 14:00 Resp 16 10/21/18 14:00 BP 135/74 10/21/18 14:00 Pulse Ox 97 10/21/18 14:00 Intake & Output 10/20/18 10/21/18 10/21/18 18:59 06:59 18:59 Intake Total 1575 1230 625 Output Total 2400 1350 1000 Balance -825 -120 -375 Weight 174 lb 3 oz Intake: IV 350 450 Vancomycin HCl Inj 1,000 250 250 mg Vancomycin HCl Inj 250 mg In NS 250ml 250 ML @ 125 mls/hr IVPB Q12H [facility] Rx#:[id number] Zosyn 3.375 GM In NS ( 100 200 NACL 0.9%) 100ml 100 ML @ 25 mls/hr IVPB Q8H [facility] Rx#:[id number] Oral 1225 780 625 Output: Urine 2400 1350 1000 General: Alert, Oriented x3 HEENT: Other - less edema.induration.and redness as marked by marker - Results Results: 10/21/18 12:37 Insulin Detemir [Levemir] 25 units SUBCU BEDTIME 10/21/18 13:00 HYDROcodone 5MG/APAP 325MG [[place] 5/325] 1 ea PO ONCE 10/21/18 16:30 GLUCOSE, FINGER STICK ACHS 10/21/18 21:00 GLUCOSE, FINGER STICK ACHS 10/22/18 05:00 BASIC METABOLIC PANEL Routine C-REACTIVE PROTEIN Routine MAGNESIUM Routine CBC (AUTOMATED) W/AUTO DIFF Routine ERYTHROCYTE SEDIMENTATION RATE Routine 10/22/18 08:15 VANCOMYCIN TROUGH Routine Laboratory Results WBC 6.3 K/mm3 (4.8-10.8) 10/21/18 05:36 RBC 3.57 M/mm3 (4.20-5.40) L 10/21/18 05:36 Hgb 10.5 gm/dL (12.0-16.0) L 10/21/18 05:36 Hct 30.9 % (36.0-47.0) L 10/21/18 05:36 MCV 86.6 fl (81.0-99.0) 10/21/18 05:36 MCH 29.4 pg (27.0-31.0) 10/21/18 05:36 MCHC 33.9 g/dL (33.0-37.0) 10/21/18 05:36 RDW 15.6 % (11.5-14.5) H 10/21/18 05:36 Plt Count 276 K/mm3 (130-400) 10/21/18 05:36 MPV 6.8 fl (7.40-10.4) L 10/21/18 05:36 Absolute Neuts (auto) 4.20 K/uL (1.8-6.8) 10/21/18 05:36 Absolute Lymphs (auto) 1.50 K/uL (1.0-3.4) 10/21/18 05:36 Absolute Monos (auto) 0.50 K/uL (0.2-0.8) 10/21/18 05:36 Absolute Eos (auto) 0.10 K/uL (0.0-0.4) 10/21/18 05:36 Absolute Basos (auto) 0.00 K/uL (0.0-0.1) 10/21/18 05:36 Neutrophils % 66.8 % (42.0-78.0) 10/21/18 05:36 Lymphocytes % 23.2 % (20.0-50.0) 10/21/18 05:36 Monocytes % 7.6 % (2.0-9.0) 10/21/18 05:36 Eosinophils % 1.8 % (1.0-5.0) 10/21/18 05:36 Basophils % 0.6 % (0.0-2.0) 10/21/18 05:36 ESR 56 mm/hr (0-30) H 10/19/18 17:28 PT < 8.9 SECONDS (9.0-10.9) L 10/19/18 14:48 INR < 1.00 (0.9-1.15) 10/19/18 14:48 PTT (SP) 23.2 SECONDS (21.8-31.6) 10/19/18 14:48 Sodium 138 mmol/L (135-145) 10/21/18 05:36 Potassium 3.6 mmol/L (3.6-5.0) 10/21/18 05:36 Chloride 107 mmol/L (101-111) 10/21/18 05:36 Carbon Dioxide 23 mmol/L (21-31) 10/21/18 05:36 Anion Gap 11.6 (12-18) L 10/21/18 05:36 BUN 9 mg/dL (7-18) 10/21/18 05:36 Creatinine 0.50 mg/dL (0.6-1.3) L 10/21/18 05:36 BUN/Creatinine Ratio 18.0 (10-20) 10/21/18 05:36 POC Glucose 223 mg/dL (70-105) H D 10/21/18 11:58 Random Glucose 166 mg/dL (70-105) H 10/21/18 05:36 Hemoglobin A1c 12.3 % (4.0-6.0) H 10/19/18 14:48 Serum Osmolality 278.1 mOsm/L (275-295) 10/21/18 05:36 Lactic Acid 1.2 mmol/L (0.5-2.2) 10/19/18 14:48 Calcium 8.8 mg/dL (8.4-10.2) 10/21/18 05:36 Magnesium 1.7 mg/dL (1.8-2.5) L 10/21/18 05:36 Total Bilirubin 0.4 mg/dL (0.2-1.0) 10/21/18 05:36 AST 56 IU/L (10-42) H D 10/21/18 05:36 ALT 95 IU/L (10-60) H 10/21/18 05:36 Alkaline Phosphatase 192 IU/L (42-121) H 10/21/18 05:36 C-Reactive Protein 5.3 mg/dL (0-1.0) H 10/19/18 17:28 Serum Total Protein 6.0 gm/dL (6.4-8.2) L 10/21/18 05:36 Albumin 2.6 g/dl (3.2-5.5) L 10/21/18 05:36 Globulin 3.4 gm/dL (2.3-3.5) 10/21/18 05:36 Albumin/Globulin Ratio 0.8 (1.1-1.9) L 10/21/18 05:36 Urine Color Yellow (Yellow) 10/19/18 19:59 Urine Appearance Sl cloudy (Clear) 10/19/18 19:59 Urine pH 6.0 (4.5-7.8) 10/19/18 19:59 Ur Specific [place] >= 1.030 (1.005-1.030) 10/19/18 19:59 Urine Protein >=300 mg/dL H 10/19/18 19:59 Urine Glucose (UA) 500 mg/dL (Negative) H 10/19/18 19:59 Urine Ketones Trace mg/dL (NEGATIVE) 10/19/18 19:59 Urine Blood Large (Negative) H 10/19/18 19:59 Urine Nitrite Negative 10/19/18 19:59 Urine Bilirubin Negative (NEGATIVE) 10/19/18 19:59 Urine Urobilinogen 1.0 mg/dL (0.2-1.0) 10/19/18 19:59 Ur Leukocyte Esterase Negative (Negative) 10/19/18 19:59 Urine RBC 20-30 /hpf H 10/19/18 19:59 Urine WBC 3-5 /hpf H 10/19/18 19:59 Ur Epithelial Cells 5-10 /hpf 10/19/18 19:59 Urine Bacteria 1+ 10/19/18 19:59 Assessment/Plan - Assessment Assessment: CT done confirms parotid abscess small. also inflammation possible myositis. Overall improved Also evidence of dental abscess - Plan for Current Visit Plan: Continue current ABX Arrange appt. with ENT on next available here. Will need to contact them for OP consult either here or the patient should see sooner at their office if outside of [place] Needs dental follow-up
[2018-10-21] MEDS: INSULIN DETEMIR 100 UNITS/ML PEN SUBCU SCH (20:58)
[2018-10-21] MEDS: ENOXAPARIN SODIUM 40 MG/0.4 ML SYG SUBCU SCH (21:01)
[2018-10-22] MEDS: HYDROcodone 5MG/APAP 325MG 1 EA TAB PO PRN ×4 (01:18→22:24)
[2018-10-22] MEDS ORDERED: SODIUM CHLORIDE 0.9% 100ML 100 ML IVPB ONE ×4 (02:31→19:58)
[2018-10-22] MEDS ORDERED: PIPERACILLIN/TAZOBACTAM 3.375 GM VIAL IVPB ONE ×4 (02:31→19:57)
[2018-10-22] MEDS: PIPERACILLIN/TAZOBACTAM 3.375 GM in SODIUM CHLORIDE 0.9% 100ML 100 ML IVPB SCH ×3 (02:33→18:04)
[2018-10-22] MEDS: PANTOPRAZOLE SODIUM TAB 40 MG PO SCH (06:03)
[2018-10-22] MEDS: INSULIN LISPRO 100 UNITS/ML PEN SUBCU SCH ×4 (07:19→21:04)
[2018-10-22] MEDS ORDERED: VANCOMYCIN HCL INJ 500 MG VIAL ONE ×2 (08:09→19:56)
[2018-10-22] MEDS ORDERED: SODIUM CHLORIDE 0.9% 250ML 250 ML ONE ×2 (08:09→19:56)
[2018-10-22] MEDS ORDERED: VANCOMYCIN HCL INJ 1,000 MG VIAL IVPB ONE ×2 (08:09→19:57)
[2018-10-22] MEDS: ALBUTEROL SULFATE 2.5 MG/3 ML VIAL NEB SCH ×4 (08:11→20:42)
[2018-10-22] MEDS: CITALOPRAM HBR 20 MG TAB PO SCH (08:51)
[2018-10-22] MEDS: NICOTINE PATCH 14 MG TD SCH (08:51)
[2018-10-22] MEDS: SODIUM CHLORIDE 0.9% (FLUSH) 10 ML SYG IV SCH ×2 (08:53→21:06)
[2018-10-22] MEDS: HYDROcodone 5MG/APAP 325MG 1 EA TAB PO SCH ×3 (08:55→13:39)
[2018-10-22] MEDS: VANCOMYCIN HCL INJ 1,000 MG, VANCOMYCIN HCL INJ 250 MG in SODIUM CHLORIDE 0.9% 250ML 25... IVPB SCH ×2 (10:22→21:07)
[2018-10-22] MEDS ORDERED: POTASSIUM CHLORIDE 20 MEQ TAB PO ONE (11:15)
[2018-10-22] MEDS ORDERED: POTASSIUM CHLORIDE 20 MEQ TAB ONE (11:26)
--- NOTE | 2018-10-22 13:10 | PCM.PROG ---
PCM Subjective - Review of Systems Events since last encounter: no change Objective - Exam Vitals and I&O: Vital Signs Temp 97.8 F 10/22/18 10:00 Pulse 72 10/22/18 12:47 Resp 18 10/22/18 12:47 BP 152/84 10/22/18 10:00 Pulse Ox 97 10/22/18 12:47 Intake & Output 10/21/18 10/22/18 10/22/18 18:59 06:59 18:59 Intake Total 1425 1080 Output Total 1800 900 Balance -375 180 Weight 174 lb 3 oz Intake: IV 350 450 Vancomycin HCl Inj 1,000 250 250 mg Vancomycin HCl Inj 250 mg In NS 250ml 250 ML @ 125 mls/hr IVPB Q12H [facility] Rx#:[id number] Zosyn 3.375 GM In NS ( 100 200 NACL 0.9%) 100ml 100 ML @ 25 mls/hr IVPB Q8H [facility] Rx#:[id number] Oral 1075 630 Output: Urine 1800 900 Other: # Voids 2 - Results Results: 10/22/18 16:30 GLUCOSE, FINGER STICK ACHS 10/22/18 21:00 GLUCOSE, FINGER STICK ACHS 10/23/18 05:00 BASIC METABOLIC PANEL Routine MAGNESIUM Routine CBC (AUTOMATED) W/AUTO DIFF Routine Laboratory Results WBC 6.0 K/mm3 (4.8-10.8) 10/22/18 05:00 RBC 3.66 M/mm3 (4.20-5.40) L 10/22/18 05:00 Hgb 10.6 gm/dL (12.0-16.0) L 10/22/18 05:00 Hct 31.5 % (36.0-47.0) L 10/22/18 05:00 MCV 86.1 fl (81.0-99.0) 10/22/18 05:00 MCH 29.0 pg (27.0-31.0) 10/22/18 05:00 MCHC 33.7 g/dL (33.0-37.0) 10/22/18 05:00 RDW 15.8 % (11.5-14.5) H 10/22/18 05:00 Plt Count 280 K/mm3 (130-400) 10/22/18 05:00 MPV 6.2 fl (7.40-10.4) L 10/22/18 05:00 Absolute Neuts (auto) 4.20 K/uL (1.8-6.8) 10/22/18 05:00 Absolute Lymphs (auto) 1.20 K/uL (1.0-3.4) 10/22/18 05:00 Absolute Monos (auto) 0.40 K/uL (0.2-0.8) 10/22/18 05:00 Absolute Eos (auto) 0.10 K/uL (0.0-0.4) 10/22/18 05:00 Absolute Basos (auto) 0.00 K/uL (0.0-0.1) 10/22/18 05:00 Neutrophils % 70.2 % (42.0-78.0) 10/22/18 05:00 Lymphocytes % 20.2 % (20.0-50.0) 10/22/18 05:00 Monocytes % 7.0 % (2.0-9.0) 10/22/18 05:00 Eosinophils % 2.1 % (1.0-5.0) 10/22/18 05:00 Basophils % 0.5 % (0.0-2.0) 10/22/18 05:00 ESR 75 mm/hr (0-30) H 10/22/18 05:00 PT < 8.9 SECONDS (9.0-10.9) L 10/19/18 14:48 INR < 1.00 (0.9-1.15) 10/19/18 14:48 PTT (SP) 23.2 SECONDS (21.8-31.6) 10/19/18 14:48 Sodium 139 mmol/L (135-145) 10/22/18 05:00 Potassium 3.5 mmol/L (3.6-5.0) L 10/22/18 05:00 Chloride 108 mmol/L (101-111) 10/22/18 05:00 Carbon Dioxide 21 mmol/L (21-31) 10/22/18 05:00 Anion Gap 13.5 (12-18) 10/22/18 05:00 BUN 8 mg/dL (7-18) 10/22/18 05:00 Creatinine < 0.40 mg/dL (0.6-1.3) L 10/22/18 05:00 BUN/Creatinine Ratio 20.0 (10-20) 10/22/18 05:00 POC Glucose 204 mg/dL (70-105) H D 10/22/18 11:22 Random Glucose 101 mg/dL (70-105) 10/22/18 05:00 Hemoglobin A1c 12.3 % (4.0-6.0) H 10/19/18 14:48 Serum Osmolality 276.0 mOsm/L (275-295) 10/22/18 05:00 Lactic Acid 1.2 mmol/L (0.5-2.2) 10/19/18 14:48 Calcium 8.7 mg/dL (8.4-10.2) 10/22/18 05:00 Magnesium 1.9 mg/dL (1.8-2.5) 10/22/18 05:00 Total Bilirubin 0.4 mg/dL (0.2-1.0) 10/21/18 05:36 AST 56 IU/L (10-42) H D 10/21/18 05:36 ALT 95 IU/L (10-60) H 10/21/18 05:36 Alkaline Phosphatase 192 IU/L (42-121) H 10/21/18 05:36 C-Reactive Protein 2.9 mg/dL (0-1.0) H D 10/22/18 05:00 Serum Total Protein 6.0 gm/dL (6.4-8.2) L 10/21/18 05:36 Albumin 2.6 g/dl (3.2-5.5) L 10/21/18 05:36 Globulin 3.4 gm/dL (2.3-3.5) 10/21/18 05:36 Albumin/Globulin Ratio 0.8 (1.1-1.9) L 10/21/18 05:36 Urine Color Yellow (Yellow) 10/19/18 19:59 Urine Appearance Sl cloudy (Clear) 10/19/18 19:59 Urine pH 6.0 (4.5-7.8) 10/19/18 19:59 Ur Specific [place] >= 1.030 (1.005-1.030) 10/19/18 19:59 Urine Protein >=300 mg/dL H 10/19/18 19:59 Urine Glucose (UA) 500 mg/dL (Negative) H 10/19/18 19:59 Urine Ketones Trace mg/dL (NEGATIVE) 10/19/18 19:59 Urine Blood Large (Negative) H 10/19/18 19:59 Urine Nitrite Negative 10/19/18 19:59 Urine Bilirubin Negative (NEGATIVE) 10/19/18 19:59 Urine Urobilinogen 1.0 mg/dL (0.2-1.0) 10/19/18 19:59 Ur Leukocyte Esterase Negative (Negative) 10/19/18 19:59 Urine RBC 20-30 /hpf H 10/19/18 19:59 Urine WBC 3-5 /hpf H 10/19/18 19:59 Ur Epithelial Cells 5-10 /hpf 10/19/18 19:59 Urine Bacteria 1+ 10/19/18 19:59 Vancomycin Trough 12.8 ug/mL (5.0-10.0) H 10/22/18 08:22 Assessment/Plan - Plan for Current Visit Plan: Parotitis. To fu with ENT
[2018-10-22] MEDS: INSULIN DETEMIR 100 UNITS/ML PEN SUBCU SCH (21:03)
[2018-10-22] MEDS: ENOXAPARIN SODIUM 40 MG/0.4 ML SYG SUBCU SCH (21:06)
[2018-10-22] MEDS: IV SET AND CAP CHANGE INJ INJ SCH (21:28)
[2018-10-23] MEDS: PIPERACILLIN/TAZOBACTAM 3.375 GM in SODIUM CHLORIDE 0.9% 100ML 100 ML IVPB SCH (03:00)
[2018-10-23] MEDS: HYDROcodone 5MG/APAP 325MG 1 EA TAB PO PRN ×2 (03:01→09:30)
[2018-10-23 04:40] VITALS: TEMP 98.4
[2018-10-23] MEDS: PANTOPRAZOLE SODIUM TAB 40 MG PO SCH (06:17)
[2018-10-23] MEDS ORDERED: PIPERACILLIN/TAZOBACTAM 3.375 GM VIAL IVPB ONE (07:24)
[2018-10-23] MEDS ORDERED: SODIUM CHLORIDE 0.9% 250ML 250 ML ONE (07:24)
[2018-10-23] MEDS ORDERED: VANCOMYCIN HCL INJ 500 MG VIAL ONE (07:24)
[2018-10-23] MEDS ORDERED: VANCOMYCIN HCL INJ 1,000 MG VIAL IVPB ONE (07:26)
[2018-10-23] MEDS ORDERED: SODIUM CHLORIDE 0.9% 100ML 100 ML IVPB ONE (07:26)
[2018-10-23] MEDS: ALBUTEROL SULFATE 2.5 MG/3 ML VIAL NEB SCH ×2 (08:10→13:25)
[2018-10-23 08:13] VITALS: O2SAT 98
--- NOTE | 2018-10-23 08:13 | PN ---
DATE: 10/22/2018 SUPERVISING PHYSICIAN: Misha Hall M.D. SUBJECTIVE: The patient continues to complain of pain in that right jaw, although it is apparent it has improved and that the swelling is less and there is minimal redness. Otherwise she has no complaints of shortness of breath, nausea, vomiting or chest pain. OBJECTIVE: VITAL SIGNS: Temperature 97.8, heart rate 79, blood pressure 152/84, respiratory rate 18, oxygen saturation 97% on room air. HEENT: Her left jaw has a localized area of edema that is just inferior to her earlobe. There is very minimal erythema except in the center portion of the abscess. The edema is limited to an abscess that is about 2 cm in diameter, although the right side of her face is slightly more edematous than the left side. There is no fluctuance or drainage. RESPIRATORY: Essentially clear to auscultation bilaterally. CARDIAC: Regular rate and rhythm. GASTROINTESTINAL: Abdomen is soft, nondistended, non-tender. Bowel sounds are positive. NEUROLOGIC: She is awake, alert and oriented times three. LABORATORY: WBCs are 6.0, hemoglobin 10.6, hematocrit 31.5. Her ESR is 75. Electrolytes are basically within normal limits with the exception of her potassium is low at 3.5. Glucose has run between 114 and 232. C-reactive protein is 2.9. Preliminary blood cultures show no growth after 3 days. Her wound culture shows streptococcus intermedius and there will be no further workup. Her preliminary nasal swab shows staphylococcus aureus. Soft tissue of the neck shows: 1. Findings concerning for right parotitis with small parotid abscess posteriorly and inferiorly. 2. There is enlargement of the right sternocleidomastoid with a tubular shaped lucency along the long axis of the anterior proximal half of the sternocleidomastoid which measures up to 1.9 cm x 1.3 cm x 5.2 cm concerning for contiguous myositis with intramuscular abscess 3. There is preseptal soft tissue swelling on the right which is not fully demonstrated cephalocaudally. 4. Multiple absent maxillary and mandibular teeth. There is an apical abscess involving the right lower second molar with dehiscence along the labial cortex, however, the parodontal soft tissue are not clearly discernible due to artifact from adjacent dental hardware. All other labs and films have been reviewed via the EMR. ASSESSMENT: 1. Cellulitis of the right facial/parotid gland with concerns for developing sepsis. She has a significant history of MRSA of the wound with poor healing due to poorly controlled her diabetes. 2. Parotitis of the right parotid gland. 3. Poor dentition with possibly central abscess. 4. Hyperglycemia on admission with history of poorly controlled diabetes mellitus Type 2. Admitting hemoglobin A1c is 12.3. 5. Diabetes mellitus type 2 on insulin therapy. 6. Chronic obstructive pulmonary disease without exacerbation. 7. Gastroesophageal reflux disease. 8. Tobacco abuse. 9. Depression due to situational stress. PLAN: We will continue present supportive care. She will continue on her vancomycin and Zosyn. I have her some potassium and will redraw her labs tomorrow. It is recommended that we speak with Dr. Black given her extensive history as well as the new abscess on her parotid gland for the antibiotics needed as well as length of treatment. She may need an extended antibiotic therapy. She will also need a followup with ENT as well as a dentist. Dr. Penaloza has also seen the patient and he agrees that she needs to see ENT. Hopefully, she can be discharged in the next day or two with followup with ENT, dentist and a PCP. #[id number] [facility]
[2018-10-23] MEDS: INSULIN LISPRO 100 UNITS/ML PEN SUBCU SCH ×2 (09:07→12:27)
[2018-10-23] MEDS: CITALOPRAM HBR 20 MG TAB PO SCH (09:31)
[2018-10-23] MEDS: SODIUM CHLORIDE 0.9% (FLUSH) 10 ML SYG IV SCH (09:32)
[2018-10-23] MEDS: NICOTINE PATCH 14 MG TD SCH (09:32)
[2018-10-23] MEDS: VANCOMYCIN HCL INJ 1,000 MG, VANCOMYCIN HCL INJ 250 MG in SODIUM CHLORIDE 0.9% 250ML 25... IVPB SCH (09:32)
[2018-10-23] MEDS ORDERED: KETOROLAC TROMETHAMINE INJ 30 MG/ML VIAL IV ONE (09:36)
[2018-10-23] MEDS ORDERED: methylPREDNISolone SODIUM SUC 40 MG/ML VIAL IV ONE (09:37)
[2018-10-23 12:25] VITALS: BP 152/80
[2018-10-23] MEDS ORDERED: ERTAPENEM 1 GM in SODIUM CHL 0.9% 50ML MIN-BAG+ 50 ML IVPB SCH (12:30)
[2018-10-23] MEDS ORDERED: ERTAPENEM 1 GM VIAL ONE (12:45)
[2018-10-23] MEDS ORDERED: SODIUM CHL 0.9% 50ML MIN-BAG+ 50 ML IVPB ONE (12:45)
--- NOTE | 2018-10-23 20:19 | DS ---
SUPERVISING PHYSICIAN: Frederic Guerrero M.D. ADMISSION DIAGNOSIS: 1. Cellulitis of the right facial/parotid gland with concern for developing sepsis. 2. Hyperglycemia with poorly controlled diabetes mellitus type 2. 3. Chronic obstructive pulmonary disease without exacerbation. 4. Gastroesophageal reflux disease. 5. Tobacco abuse. 6. Depression. DISCHARGE DIAGNOSIS: 1. Right parotitis with abscess status post incision and drainage in the Emergency Room. 2. Right sternocleidomastoid myositis/abscess. 3. Possible dental abscess. 4. Uncontrolled diabetes mellitus type 2. 5. Chronic obstructive pulmonary disease with no exacerbation. 6. Gastroesophageal reflux disease. 7. Tobacco abuse. 8. Depression. HOSPITAL COURSE: This is a 57 year-old female who came to the Emergency Room due to swelling in her right jaw that started about a week prior to admission. It started as a small bump and went away, then in 2 to 3 days it started to worsen. In the E. R., she was febrile with a temperature of 99.2, hypertensive and also showed no white count elevation. She did have an incision and drainage on her jaw and a wound culture was sent. She was placed on vancomycin and Zosyn. Throughout her 4 days here she actually showed some improvement in the cellulitis and swelling of the right jaw. She is continuing to have a significant amount of pain, however. She ended up having a CT scan of the soft tissues of the neck which showed the parotitis as well as a possible sternocleidomastoid abscess and dental abscess. On the morning of the , I contacted Dr. Black in [place] for direction with antibiotics. She did state that the patient could probably be on Invanz 1 gram daily given the fact that her culture grew out Streptococcus intermedius. However, she also recommended that the patient have an incision and drainage of the sternocleidomastoid muscle. ENT services are not available in [place], so I contacted [facility] in [place] and the patient will be transferred there. Dr. Francois from [place] accepts the patient and Dr. Padilla was the ENT physician who accepted as a consultation as well. Therefore the patient will be transferred to [facility] at this time in stable condition. Further care will be administered by [facility]. #[id number] [facility]
== END 2018-10-23 13:30 | disposition short-term general hospital (02) | DRG 155 ==
LOC: ER 13:41 → MS 16:22
PROVIDERS: ADMIT Nurse Practitioner Acute Care; ATTEND Nurse Practitioner
PROC: 0H94XZZ Drainage of Neck Skin, External Approach (ICD-10-PCS; principal; 2018-10-19)
PROC: BW2F1ZZ Computerized Tomography (CT Scan) of Neck using Low Osmolar Contrast (ICD-10-PCS; 2018-10-21)
DX: K11.20 Sialoadenitis, unspecified (principal); M60.08 Infective myositis, other site; K11.3 Abscess of salivary gland; E11.65 Type 2 diabetes mellitus with hyperglycemia; J44.9 Chronic obstructive pulmonary disease, unspecified; K21.9 Gastro-esophageal reflux disease without esophagitis; F32.9 Major depressive disorder, single episode, unspecified; F17.210 Nicotine dependence, cigarettes, uncomplicated; I10 Essential (primary) hypertension; I25.10 Atherosclerotic heart disease of native coronary artery without angina pectoris; E11.42 Type 2 diabetes mellitus with diabetic polyneuropathy; E11.51 Type 2 diabetes mellitus with diabetic peripheral angiopathy without gangrene; Z95.820 Peripheral vascular angioplasty status with implants and grafts; Z86.14 Personal history of Methicillin resistant Staphylococcus aureus infection; Z79.4 Long term (current) use of insulin